=== PATIENT | female | born 1940 | race Caucasian/White ===

== ENCOUNTER 2018-03-19 01:41 | Inpatient (IN) | payer MEDICARE, BC ==
[2018-03-19] VITALS (28 sets, daily range): BP systolic 95–150; BP diastolic 47–110; PULSE 82–100; RESP 13–18; Ht 160 cm; Wt 90.1 kg
[~2018-03-19] VITALS: Ht 160 cm; Wt 90.1 kg
[~2018-03-19 01:41] MED LIST: ACET1TAB40 PO; ALLO100T PO; BENA20TA4 PO; BUPR75TA9 PO; ESOM40CA PO; ESTR1TAB23 PO; LEVO88TA42 PO; PARO30TA48 PO; TRAZ-111 PO
--- NOTE | 2018-03-19 01:56 | OPR ---
Date/Time of Note Date/Time of Note DATE: 03/19/18 TIME: 01:52 Operative Report Free Text/Dictation DATE OF OPERATION: 03/19/2018 PREOPERATIVE DIAGNOSES: 1. L4-5 unstable isthmic spondylolisthesis s/p ALIF w/ PSIF on 03/11/2018 w/ graft subsidence and recurrent right L4 stenosis w/ radiculopathy POSTOPERATIVE DIAGNOSES: 1. L4-5 unstable isthmic spondylolisthesis s/p ALIF w/ PSIF on 03/11/2018 w/ graft subsidence and recurrent right L4 stenosis w/ radiculopathy 2. Right sided L4-5 hardware failure OPERATION PERFORMED: 1. Revision right sided L4-5 partial laminectomy, medial facetectomy, and foraminotomy 2. Revision L4-5 posterior spinal instrumented fusion SURGEON: Zeeshan Velazquez MD HEALTH EQUIPMENT SERVICER: Bhupinder Chacon MD ANESTHESIA: General endotracheal ESTIMATED BLOOD LOSS: Minimal SURGICAL INDICATION: The patient is a 77 year-old female who has a past medical history of L4-5 wide decompression many years ago that was compliacted with an L4-5 unstable isthmic grade 2 spondylolosthesis. She uderwent an ALIF w/ PSIF on 03/11/2018 that was compliacted with graft subsidence and hardwrae failure resulting in recurrent right sided foraminal stenosis. She developed recurrent severe right sided leg pain and was unable to ambulate. The patient had failed conservative treatment. Risks, benefits, and alternatives to a revision decompressive procedure and fusion including but not exclusive of risks of bleeding, hardware failure, infection, nerve injury, cauda equina syndrome, iatrogenic instability, dural tear, myocardial infarction, stroke, pulmonary embolism were explained to the patient, and he wished to proceed. DESCRIPTION OF TECHNIQUE: The patient was identified in the preoperative area a nd taken to the operating room. Rapid induction of general endotracheal anesthesia was performed. Patient was given 2 g of cefazolin for prophylaxis. The patient was then placed in the prone position on the axis table with all bony prominences well padded. The back was prepped and draped in usual sterile manner. Using a spinal needle and intraoperative fluoroscopy, the L4-5 level was clearly identified. The skin was injected using 0.25% Marcaine with epinephrine. Longitudinal midline incision was then created using a 10 blade. Further dissection through soft tissue was performed using electrocautery down over the right L4-5 facet joint. . Dissection was taken down over the facet joint capsule. A self-retaining retractor was applied. Again, intraoperative f luoroscopy confirmed the level. The microscope was brought into use for microdissection. The decompressive procedure took an addition 1.5 hours due to the abudunt scar tisssue that was adherent to the dura from the prior decompression. Meticulous dissection was performed using a series of curettes and kerrison rongeurs to disect out the facet. The pars defect was also identified and the right L4-5 facet was resected and the L4 nerve root was follwed from the L3 pedicle laterally and noted to be decompressed. The Alcides was removed at L4-5 on the Right. The Right L4 pedicle screw was noted to be loose. The Right L5 screw and Left sided L4 and L5 screws were also checked and noted to be in good position without loosening. The Right L3 screw was removed and replaced with a larger diameter and longer 7.5 x 45 mm screw. A new alcides was then placed and set screws were placed. Meticulous attention was paid toward hemostasis using bipolar cautery, FloSeal, Gelfoam and thrombin. Care was taken to remove all FloSeal and Gelfoam and thrombin prior to wound closure. The fascia was then closed using 1 Vicryl in interrupted fashion. Subcutaneous tissue was closed using 2-0 Vicryl in interrupted fashion. Skin was closed using a running 4-0 Monocryl stitch. The wound was dressed using Dermabond, sterile 4x4 gauze and Tegaderm. The patient was returned to the supine position. They were extubated immediately postoperatively and taken to the recovery room in stable condition. COMPLICATIONS: None. Procedure Date: Mar 19, 2018 Preoperative Diagnosis 1. L4-5 unstable isthmic spondylolisthesis s/p ALIF w/ PSIF on 03/11/2018 w/ graft subsidence and recurrent right L4 stenosis w/ radiculopathy Postoperative Diagnosis 1. L4-5 unstable isthmic spondylolisthesis s/p ALIF w/ PSIF on 03/11/2018 w/ graft subsidence and recurrent right L4 stenosis w/ radiculopathy 2. Right sided L4-5 hardware failure Operation/Procedure Performed 1. Revision right sided L4-5 partial laminectomy, medial facetectomy, and foraminotomy 2. Revision L4-5 posterior spinal instrumented fusion Surgeon see signature line Feather Cutting Machine Feeder Bhupinder Chacon MD Anesthesia Type: general Estimated Blood Loss: 10 - 50 ml's Transfusion none Specimen None Grafts/Implants NuVasive 7.5 x 45 mm pedicle screw Complications none Pt Condition Post Procedure: stable Disposition: PACU Procedure Description DESCRIPTION OF TECHNIQUE: The patient was identified in the preoperative area and taken to the operating room. Rapid induction of general endotracheal anesthesia was performed. Patient was given 2 g of cefazolin for prophylaxis. The patient was then placed in the prone position on the axis table with all bony prominences well padded. The back was prepped and draped in usual sterile manner. Using a spinal needle and intraoperative fluoroscopy, the L4-5 level was clearly identified. The skin was injected using 0.25% Marcaine with epinephrine. Longitudinal midline incision was then created using a 10 blade. Further dissection through soft tissue was performed using electrocautery down over the right L4-5 facet joint. . Dissection was taken down over the facet joint capsule. A self-retaining retractor was applied. Again, intraoperative fluoroscopy confirmed the level. The microscope was brought into use for microdissection. The decompressive procedure took an addition 1.5 hours due to the abudunt scar tisssue that was adherent to the dura from the prior decompression. Meticulous dissection was performed using a series of curettes and kerrison rongeurs to disect out the facet. The pars defect was also identified and the right L4-5 facet was resected and the L4 nerve root was follwed from the L3 pedicle laterally and noted to be decompressed. The Alcides was removed at L4-5 on the Right. The Right L4 pedicle screw was noted to be loose. The Right L5 screw and Left sided L4 and L5 screws were also checked and noted to be in good position without loosening. The Right L3 screw was removed and replaced with a larger diameter and longer 7.5 x 45 mm screw. A new alcides was then placed and set screws were placed. Meticulous attention was paid toward hemostasis using bipolar cautery, FloSeal, Gelfoam and thrombin. Care was taken to remove all FloSeal and Gelfoam and thrombin prior to wound closure. The fascia was then closed using 1 Vicryl in interrupted fashion. Subcutaneous tissue was closed using 2-0 Vicryl in interrupted fashion. Skin was closed using a running 4-0 Monocryl stitch. The wound was dressed using Dermabond, sterile 4x4 gauze and Tegaderm. The patient was returned to the supine position. They were extubated immediately postoperatively and taken to the recovery room in stable condition. ZEESHAN VELAZQUEZ MD Mar 19, 2018 01:56
[2018-03-19] MEDS ORDERED: PROCHLORPERAZINE 10 MG TAB PO PRN (02:00)
[2018-03-19] MEDS ORDERED: NACL 0.9% 3 ML SYG IV SCH (02:00)
[2018-03-19] MEDS ORDERED: HYDROmorphONE 1 MG/5 ML IV SYRINGE IV PRN ×3 (02:00)
[2018-03-19] MEDS ORDERED: ONDANSETRON 4 MG INJ IV PRN ×2 (02:00)
[2018-03-19] MEDS ORDERED: ACETAMINOPHEN 325 MG TAB PO PRN (02:00)
[2018-03-19] MEDS ORDERED: MEPERIDINE 25 MG INJ IV PRN (02:00)
[2018-03-19] MEDS ORDERED: NALOXONE (0.4 MG/ML) INJ IV PRN (02:00)
[2018-03-19] MEDS ORDERED: DIPHENHYDRAMINE 50 MG INJ IV PRN (02:00)
[2018-03-19] MEDS ORDERED: HYDROmorphONE 0.2 MG/ML PCA IV SCH (02:00)
--- NOTE | 2018-03-19 03:31 | NUR ---
pt came out of surgery with old personal lines agent from Rehab (turned off); Harjinder VillaltaAutomatic Spinning Lathe Operator came and picked up that personal lines agent and medication along with it to return to Rehab (per Pharmacy); New E TAILER started vss gauze dressing with tegaderm on back; c/d/i pain 06/09 called for family; no one in waiting area gave report to NAI Morris
[2018-03-19] MEDS: CEFAZOLIN 1 GM/50 ML (PMX) 50 ML IVPB SCH ×3 (05:38→17:38)
[2018-03-19] MEDS ORDERED: CEFAZOLIN 1 GM/50 ML (PMX) 50 ML IVPB SCH (06:00)
--- NOTE | 2018-03-19 06:53 | NUR ---
EOSS: PT IN BED ASLEEP. EASILY AWAKENS. NO DISTRESS. NO ACUTE CHANGES. PATIENT FROM PACU S/P REVISION OF L4-5 PARTIAL LAMINECTOMY,MEDIAL FACETECTOMY AND FORAMINOTOMY, REVISION OF POSTERIOR SPINAL INSTRUMENTED FUSION. DRESSING TO LOWER BACK WITH GAUZE AND TEGADERM C/D/I. ABDOMINAL INCISION FROM PRIOR SX COVERED W/ TEGADERM W/ CENTRAL PAD C/D/I. F/C INTACT AND DRAINING. IV ATB ADMINISTERED ORDERED TOLERATED WELL. PAIN MANAGED WITH VB NET DEVELOPER DILAUDID. TOLERATED WELL. ALL NEEDS MET AND ANTICIPATED. WILL CONTINUE TO MONITOR. CALL LIGHT AT REACH.
--- NOTE | 2018-03-19 07:19 | PAC ---
Date/Time of Note Date/Time of Note DATE: 03/19/18 TIME: 07:18 Post-Anesthesia Notes Post-Anesthesia Note Last documented vital signs Vital Signs Date Temp Pulse Resp B/P (MAP) Pulse Ox O2 O2 Flow FiO2 Time Delivery Rate 03/19/18 17 05:51 03/19/18 84 127/60 96 Nasal 2.0 04:55 (82) Cannula 03/19/18 98.9 03:35 Activity: WNL Respiratory function: WNL Cardiovascular function: WNL Mental status: Baseline Pain reasonably controlled: Yes Hydration appropriate: Yes Nausea/Vomiting absent: No HERNÁN CHAPMAN MD Mar 19, 2018 07:19
--- NOTE | 2018-03-19 08:31 | CONS ---
Date/Time of Note Date/Time of Note DATE: 03/19/18 TIME: 08:29 Assessment/Plan Assessment/Plan Additional Assessment/Plan 1- Post op lumbar back surgery now without right leg radic pain. 2- IV fluids started and labs ordered 3- HBP, controlled 4- Gout, quiescent 5- Mood disorder, stable 6- Will follow Consultation Date/Type/Reason Admit Date/Time Mar 19, 2018 at 03:25 Initial Consult Date Detailed Summary Respiratory: No cough, No shortness of breath Cardiovascular: No chest pain Gastrointestinal: no complaints Genitourinary: other (chan in place) Musculoskeletal: back pain (mild-mod and now she does not have right leg pain) Exam/Review of Systems Vital Signs Vitals Vital Signs Date Temp Pulse Resp B/P (MAP) Pulse Ox O2 O2 Flow FiO2 Time Delivery Rate 03/19/18 98.2 82 18 121/58 98 07:35 (79) 03/19/18 Nasal 2.0 04:55 Cannula Intake and Output 03/18/18 03/18/18 03/19/18 1515:00 23:00 07:00 IntakeIntake Total 50 ml OutputOutput Total 250 ml BalanceBalance -200 ml Exam Neck: No jvd Cardiovascular: regular rate and rhythm Gastrointestinal: soft Extremities: No edema, No tenderness Medications Medications Current Medications Acetaminophen/ Hydrocodone Bitart ([place] (5/325)) 1 tab Q4H PRN PO PAIN LEVEL 1-5; Start 03/19/18 at 02:00 Acetaminophen/ Hydrocodone Bitart ([place] (5/325)) 2 tab Q4H PRN PO PAIN LEVEL 6-10; Start 03/19/18 at 02:00 Prochlorperazine (Compazine) 10 mg Q4H PRN PO NAUSEA AND/OR VOMITING; Start 03/19/18 at 02:00 Ondansetron HCl (Zofran Inj) 4 mg Q6H PRN IV NAUSEA AND/OR VOMITING; Start 03/19/18 at 02:00 Acetaminophen (Tylenol Tab) 650 mg Q4H PRN PO fever; Start 03/19/18 at 02:00 Hydromorphone HCl (Dilaudid CONVEYOR LOADER) Q4PCA IV Last administered on 03/19/18at 03:01; Admin Dose 6 MG; Start 03/19/18 at 02:00 Naloxone HCl (Narcan) 0.2 mg Q2M PRN IV overdose; Start 03/19/18 at 02:00 Cefazolin Sodium 50 ml @ 100 mls/hr Q6 IVPB Last administered on 03/19/18at 05:38; Admin Dose 100 MLS/HR; Start 03/19/18 at 06:00; Stop 03/20/18 at 00:29 BETO DOYLE MD Mar 19, 2018 08:31
[2018-03-19] MEDS: PAROXETINE 10 MG TAB PO SCH (09:00)
[2018-03-19] MEDS: BENAZEPRIL 20 MG TAB PO SCH (09:00)
[2018-03-19] MEDS: SOD CHLORIDE 0.9% 1,000 ML IV SCH ×2 (09:30→15:22)
[2018-03-19] MEDS: BUPROPION 75 MG TAB PO SCH (11:10)
[2018-03-19] MEDS: ALLOPURINOL 100 MG TAB PO SCH (11:10)
[2018-03-19] MEDS: ESTRADIOL 1 MG TAB PO SCH (11:10)
--- NOTE | 2018-03-19 12:33 | CONS ---
Date/Time of Note Date/Time of Note DATE: 03/19/18 TIME: 12:31 Consultation Date/Type/Reason Admit Date/Time Mar 19, 2018 at 03:25 Initial Consult Date 24 HR Interval Summary Free Text/Dictation S: 77 yo F POD#1 s/p revision L4-5 fusion and decompression. Pain controlled w/ dilaudid MEDIA CONSULTANT. Reports improvement of right sided leg pain. No acute events overnight. O: Vital Signs Date Temp Pulse Resp B/P (MAP) Pulse Ox O2 O2 Flow FiO2 Time Delivery Rate 03/19/18 17 09:33 03/19/18 Nasal 2.0 08:00 Cannula 03/19/18 98.2 82 121/58 98 07:35 (79) Gen: AAOx3, NAD Spine: NVI A/P:77 yo F POD#1 s/p revision L4-5 fusion and decompression 1. appreciate med recs 2. Bed rest 3. pain management w/ PCS 4. LSO brace Exam/Review of Systems Vital Signs Vitals Vital Signs Date Temp Pulse Resp B/P (MAP) Pulse Ox O2 O2 Flow FiO2 Time Delivery Rate 03/19/18 17 09:33 03/19/18 Nasal 2.0 08:00 Cannula 03/19/18 98.2 82 121/58 98 07:35 (79) Intake and Output 03/18/18 03/18/18 03/19/18 1515:00 23:00 07:00 IntakeIntake Total 50 ml OutputOutput Total 250 ml BalanceBalance -200 ml Medications Medications Current Medications Acetaminophen/ Hydrocodone Bitart ([place] (5/325)) 1 tab Q4H PRN PO PAIN LEVEL 1-5; Start 03/19/18 at 02:00 Acetaminophen/ Hydrocodone Bitart ([place] (5/325)) 2 tab Q4H PRN PO PAIN LEVEL 6-10; Start 03/19/18 at 02:00 Prochlorperazine (Compazine) 10 mg Q4H PRN PO NAUSEA AND/OR VOMITING; Start 03/19/18 at 02:00 Ondansetron HCl (Zofran Inj) 4 mg Q6H PRN IV NAUSEA AND/OR VOMITING; Start 03/19/18 at 02:00 Acetaminophen (Tylenol Tab) 650 mg Q4H PRN PO fever; Start 03/19/18 at 02:00 Hydromorphone HCl (Dilaudid MEDIA CONSULTANT) Q4PCA IV Last administered on 03/19/18at 03:01; Admin Dose 6 MG; Start 03/19/18 at 02:00 Naloxone HCl (Narcan) 0.2 mg Q2M PRN IV overdose; Start 03/19/18 at 02:00 Cefazolin Sodium 50 ml @ 100 mls/hr Q6 IVPB Last administered on 03/19/18at 11:16; Admin Dose 100 MLS/HR; Start 03/19/18 at 06:00; Stop 03/20/18 at 00:29 Allopurinol (Zyloprim) 200 mg DAILY PO Last administered on 03/19/18at 11:10; Admin Dose 200 MG; Start 03/19/18 at 09:00 Benazepril HCl (Lotensin) 20 mg DAILY PO ; Start 03/19/18 at 09:00 Bupropion HCl (Wellbutrin) 75 mg BID PO Last administered on 03/19/18at 11:10; Admin Dose 75 MG; Start 03/19/18 at 09:00 Estradiol (Estrace) 0.5 mg DAILY PO Last administered on 03/19/18at 11:10; Admin Dose 0.5 MG; Start 03/19/18 at 09:00 Levothyroxine Sodium (Synthroid) 88 mcg BEFORE BREAKFAST PO ; Start 03/20/18 at 07:00 Paroxetine HCl (Paxil) 30 mg DAILY PO Last administered on 03/19/18at 09:00; Admin Dose 30 MG; Start 03/19/18 at 09:00 Trazodone HCl (Desyrel) 50 mg QHS PO ; Start 03/19/18 at 21:00 Sodium Chloride 1,000 ml @ 100 mls/hr Q10H IV Last administered on 03/19/18at 09:30; Admin Dose 100 MLS/HR; Start 03/19/18 at 08:30 Results Result Diagram: 03/19/18 0841 03/19/18 0841 Results 24 hrs Laboratory Tests Test 03/19/18 08:41 White Blood Count 11.8 #H Red Blood Count 3.23 L Hemoglobin 9.9 L Hematocrit 31.2 L Mean Corpuscular Volume 96.6 Mean Corpuscular Hemoglobin 30.7 Mean Corpuscular Hemoglobin Concent 31.7 L Red Cell Distribution Width 13.9 Platelet Count 312 Mean Platelet Volume 9.8 Immature Granulocytes % 2.400 H Neutrophils % 68.6 Lymphocytes % 17.0 Monocytes % 8.8 Eosinophils % 2.9 Basophils % 0.3 Nucleated Red Blood Cells % 0.0 Immature Granulocytes # 0.280 H Neutrophils # 8.1 H Lymphocytes # 2.0 Monocytes # 1.0 H Eosinophils # 0.3 Basophils # 0.0 Nucleated Red Blood Cells # 0.0 Sodium Level 135 Potassium Level 4.2 Chloride Level 103 Carbon Dioxide Level 25 Anion Gap 7 Blood Urea Nitrogen 27 H Creatinine 1.12 H Est Glomerular Filtrat Rate mL/min Glucose Level 101 Calcium Level 7.8 L Phosphorus Level 5.4 H Magnesium Level 1.6 L ZEESHAN VELAZQUEZ MD Mar 19, 2018 12:33
[2018-03-19] MEDS ORDERED: HYDROmorphONE 0.5 MG/0.5 ML SYG IV PRN (13:00)
[2018-03-19] MEDS: HYDROCODONE/APAP (5/325) TAB PO PRN ×2 (13:06→17:38)
--- NOTE | 2018-03-19 15:16 | NUR ---
CM NOTES: MET WITH THE PT AT THE BEDSIDE. PT IS A 77 YRS OLD FEMALE WITH ADMITTING DX OF SPONDYLOLITHESIS WITH SEVERE FORAMINAL STENOSIS. PT IS AXOX4. PRIOR TO THE ADMISSION, PT WAS AT [facility]. IT IS PT'S WISH TO GO BACK TO INPT REHAB UNIT WHEN SHE IS MEDICALLY CLEARED. PER THE PT, SHE WAS IN [facility] UN[facility] FOR 5 DAYS. CURRENTLY AWAITING FOR MD TO CLEAR THE PT FOR PHYSICAL THERAPY EVALUATION AND TXT. THIS CM WILL REMAIN AVAILABLE. DAV CUNNINGHAM CM [id number] Addendum: 03/19/18 at 1518 by DAV TUCKER CM Amended: Links added.
--- NOTE | 2018-03-19 19:40 | NUR ---
END OF SHIFT NOTE Pain managed with 2 tab endocet. Tomlinson catheter in place and draining to gravity. Tolerated regular diet well. Dressing to back changed to clean gauze and tegaderm. Abdomen dressing dry and intact. Pt passing gas. Has brace with her. Pt resting in bed with call light within reach and bed in lowest position.
[2018-03-20] MEDS: BUPROPION 75 MG TAB PO SCH ×3 (00:29→22:16)
[2018-03-20] MEDS: traZODone 50 MG TAB PO SCH ×2 (00:29→21:04)
[2018-03-20] MEDS: CEFAZOLIN 1 GM/50 ML (PMX) 50 ML IVPB SCH (00:29)
[2018-03-20] MEDS: HYDROCODONE/APAP (5/325) TAB PO PRN ×5 (00:29→18:59)
[2018-03-20 01:24] VITALS: BP 122/60; PULSE 85; RESP 16
[2018-03-20] MEDS: SOD CHLORIDE 0.9% 1,000 ML IV SCH ×2 (04:46→18:32)
[2018-03-20] MEDS: LEVOTHYROXINE 88 MCG TAB PO SCH (07:15)
[2018-03-20 07:27] VITALS: BP 154/70; PULSE 75; RESP 18
--- NOTE | 2018-03-20 07:55 | CONS ---
Date/Time of Note Date/Time of Note DATE: 03/20/18 TIME: 07:53 Assessment/Plan Assessment/Plan Additional Assessment/Plan 1. Post op lumbar back surg with ? residual right leg radic sxs, await ortho follow up. 2. Hopeful mobilization today. 3. DC chan soon, u/a and cult sent 4. Hypomag noted yesterday, will replete today 5. Mood disorder, is stable Consultation Date/Type/Reason Admit Date/Time Mar 19, 2018 at 03:25 Initial Consult Date Detailed Summary Respiratory: No cough, No shortness of breath Cardiovascular: No chest pain Gastrointestinal: No no complaints Genitourinary: other (chan in place) Musculoskeletal: back pain (moderate and c/o right knee pain, ? right thigh pain) Exam/Review of Systems Vital Signs Vitals Vital Signs Date Temp Pulse Resp B/P (MAP) Pulse Ox O2 O2 Flow FiO2 Time Delivery Rate 03/20/18 98.3 75 18 154/70 94 Room Air 07:27 (98) 03/19/18 2.0 08:00 Intake and Output 03/19/18 03/19/18 03/20/18 1515:00 23:00 07:00 IntakeIntake Total 430 ml 2070 ml 1150 ml OutputOutput Total 100 ml 1200 ml 1000 ml BalanceBalance 330 ml 870 ml 150 ml Exam Neck: No jvd Respiratory: clear to auscultation Cardiovascular: regular rate and rhythm Gastrointestinal: soft Extremities: other (no tend right knee or right thigh); No edema, No tenderness BETO DOYLE MD Mar 20, 2018 07:55
[2018-03-20] MEDS ORDERED: MAGNESIUM SULFATE 3 GM in DEXTROSE 5% 100 ML IVPB ONE (08:00)
[2018-03-20] MEDS ORDERED: NA PHOSPHATE/BIPHOS 133 ML ENEMA PR PRN (08:00)
[2018-03-20] MEDS: DOCUSATE SODIUM 100 MG CAP PO SCH ×2 (08:50→21:04)
[2018-03-20] MEDS: MAGNESIUM HYDROXIDE 30ML CUP PO PRN ×2 (08:50→21:07)
[2018-03-20] MEDS: BENAZEPRIL 20 MG TAB PO SCH (08:51)
[2018-03-20] MEDS: ESTRADIOL 1 MG TAB PO SCH (08:51)
[2018-03-20] MEDS: ALLOPURINOL 100 MG TAB PO SCH (08:51)
[2018-03-20] MEDS: PAROXETINE 10 MG TAB PO SCH (08:57)
--- NOTE | 2018-03-20 10:01 | NUR ---
PT EVALUATION , Therapy day number 1 Evaluation Start Time 09:00 Evaluation End Time 10:00 Evaluation Total Time 60 min Subjective Current complaint of pain Pain Scale NUMERIC Pain Intensity 5 (0-10) Patient Stated Goal for Pain Relief 0 (0-10) Pain Level Comment RLE . Pre Treatment Vital Signs Stable Yes - BP:2144/70 HR:75 Exercise Assessment Label Bilat Lower Extremity Exercise Type Active ROM Additional Exercise Comments AP, KNEE FLEX, EXT, LOG ROLL TR . Supine to Sit Maximum Assist Transfer Sit to Stand Ability Maximum Assist Bed Mobility Sit to Supine Maximum Assist Sitting Tolerance 15 min Patient uses wheelchair Not Applicable Gait Assist Levels Maximum Assist Assistive Devices Front Wheel Walker Additional Gait Comments 5 STEPS X3 INCLUFING 5 SIDE STEPS . Weight Bearing Assessment Label Bilat Lower Extremity Weight Bearing Status Full Weight Bearing Additional Stairs Assist Comments TBA WHEN ABLE . Static Sitting Balance Good Dynamic Sitting Balance Fair plus Standing Static Balance Poor plus Dynamic Standing Balance Poor plus Additional Balance Assessments Comments OOB WITH LSO BRACE Safety Judgement Fair Activity Tolerance Poor Equipment Present A pump Tomlinson Catheter IV pump Additional Equipment Present LSO BRACE . Post Treatment Pain Intensity 5 0-10 Quality Indicators Dizziness Variance Documentation P/S SEE PT NOTE . Additional Post Treatment Comment VERY NERVOUS AND ANXIOUS . PT Technical Record Comment PT EVALUATION , S: RN CLEARED , PATIENT AGREEABLE PATIENT VERY FEARFUL, ANXIOUS AND NERVOUS . A: PATIENT IS A 77 Y/O FEMALE WITH PMH: HTN , LBP, SPONDYLOLISTHESIS , SEVERE FORAMINAL STENOSIS , S/P RT TSA , CKD , H,OF GOUT S/P ANTERIOR , POSTERIOR LUMBAR INTERBODY FUSION L4-L4 ON 03/12/18 , PATIENT DISCHARGED TO ARU BUT DUE TO CONSTANT RLE PAIN ON 03/19/18 UNDERWENT REVISION L4-L5 FUSION AND DECOMPRESSION .INSTRUCTED THE PATIENT IN SAFETY FALL PRECAUTION , LOG ROLL TR , BODY MECHANICS , POSTURE TRAINING AND SPINE PRECAUTION , P/S SEE PT TECHNICAL RECORD FOR PATIENT'S FUNCTIONAL STATUS , GAIT TR W/FWW PERFORMED 5 STEPS X3 WITH MAX A AND VC'S FOR SEQUENCING , AND UPRIGHT POSTURE , NOTED PATIENT HAS DIFFICULTY ADVANCING RRE , DECREASE STEP LENGTH , AND GAIT W/FWW UNSTEADY , AND UNSTABLE AT THIS TIME ( NO BUCKLING OR RT KNEE NOTED , AND NO ANTALGIC GAIT), PATIENT RETURNED BACK TO BED WITH MAX A , NSG STAFF PRESENT ASSISTED TO RE=POSITION HER IN COMFORTABLE POSITION , VS STABLE , TOLERATED TREATMENT FAIRLY, RN NOTIFIED PATIENT'S FUNCTIONAL STATUS IN PT SESSION . A: PATIENT LIVES IN A HOUSE WITH 2 STAIRS TO ENTER , HAS BEEN FUNCTIONAL AND AMBULATORY WITHOUT AD , DC PLANING PER MD RECOMMENDATION , PATIENT WOULD LIKE TO RETURN TO ARU TO COMPLETED HER REHABILITATION PROGRAM . A: PT BID X6 DAILY X1 ( BED MOBILITY TR , LOG ROLL TR, ROM EXE;S BLE'S ( NO SLR), TRANSFER TR, PRE-GAIT TR /GAIT R W/FWW TO ELIZABETH , PATIENT EDUCATION TRAINING ), OOB WITH LSO BRACE .
--- NOTE | 2018-03-20 13:23 | NUR ---
PT NOTE , ATTEMPTED TO SEE THE PATIENT FOR PT TREATMENT , PER RN REQUEST WILL HOLD PT AT THIS TIME , DUE TO PATIENT SCHEDULED FOR MRI OF RT HIP / AND LUMBAR SPINE , PLAN TO RETURN LATER TODAY , RN AWARE .
[2018-03-20 14:08] VITALS: BP 140/60; PULSE 86; RESP 18
--- NOTE | 2018-03-20 14:30 | NUR ---
PT NOTE , RN NOTIFIED PT PER DR VELAZQUEZ , WILL HOLD PT IN PM AND REQUESTED TO KEEP PATIENT IN FLAT POSITION , PLAN TO FOLLOW UP TOMORROW ONCE CLEARED BY
--- NOTE | 2018-03-20 19:23 | NUR ---
END OF SHIFT NOTE: Pain managed with PO [place]. PT worked with pt in the morning. Due to R sided pain, pt went down for STAT CT of lumbar spine and R leg. PT held for afternoon per Dr. Anguiano. Dr to the bedside, dressing changed. VSS, call burns within reach, hourly rounding maintained.
[2018-03-20] MEDS ORDERED: DEXAMETHASONE 10 MG/ML 1 ML INJ IV ONE (19:30)
[2018-03-20 19:35] VITALS: BP 163/73; PULSE 64; RESP 16
[2018-03-20] MEDS: GABAPENTIN 300 MG CAP PO SCH (21:05)
[2018-03-20 22:15] VITALS: BP 145/65; PULSE 78
[2018-03-21 01:17] VITALS: BP 174/94; PULSE 90; RESP 18
[2018-03-21 01:22] VITALS: BP 135/70
[2018-03-21] MEDS: HYDROCODONE/APAP (5/325) TAB PO PRN ×5 (02:27→21:33)
[2018-03-21] MEDS: SOD CHLORIDE 0.9% 1,000 ML IV SCH ×2 (04:26→17:42)
[2018-03-21] MEDS: LEVOTHYROXINE 88 MCG TAB PO SCH (07:01)
[2018-03-21 07:25] VITALS: BP 147/77; PULSE 78; RESP 20
--- NOTE | 2018-03-21 07:48 | CONS ---
Date/Time of Note Date/Time of Note DATE: 03/21/18 TIME: 07:46 Assessment/Plan Assessment/Plan Additional Assessment/Plan 1- Stable post op lumbar back surg 2- HBP, controlled 3- Hypomag resolved 4- Chan needs to be remove soon 5- Hypothyroidism on replacement rx Consultation Date/Type/Reason Admit Date/Time Mar 19, 2018 at 03:25 Initial Consult Date Detailed Summary Respiratory: No shortness of breath Cardiovascular: No chest pain Gastrointestinal: no complaints Genitourinary: other (chan is in place) Musculoskeletal: back pain (mild and today she has less right thight and groin pain) Exam/Review of Systems Vital Signs Vitals Vital Signs Date Temp Pulse Resp B/P (MAP) Pulse Ox O2 O2 Flow FiO2 Time Delivery Rate 03/21/18 97.8 78 20 147/77 92 Room Air 07:25 (100) 03/19/18 2.0 08:00 Intake and Output 03/20/18 03/20/18 03/21/18 1515:00 23:00 07:00 IntakeIntake Total 156 ml 800 ml 1050 ml OutputOutput Total 950 ml 550 ml 2800 ml BalanceBalance -794 ml 250 ml -1750 ml Exam Neck: No jvd Respiratory: clear to auscultation Cardiovascular: regular rate and rhythm Gastrointestinal: soft Extremities: No edema (and no calf tend) BETO DOYLE MD Mar 21, 2018 07:48
--- NOTE | 2018-03-21 07:57 | NUR ---
End of shift Note: Given pain medication [place] PRN with good pain control. Pt BP was high last night 168/74, call MD Smith to notified to get a order for Benazepril 20 mg daily, pt stated that she did not take her BP medication since admission. MD order to give her Benazepril daily dose. Nurse check E-mar and pt had Benazepril yesterday morning. Recheck BP again and BP 145/65 and Pt BP was WNL by 2 am. Pt is on bedrest. Safety precautions taken, call light in reach and plan of care endorse to morning nurse.
[2018-03-21] MEDS: BUPROPION 75 MG TAB PO SCH ×2 (08:58→21:31)
[2018-03-21] MEDS: DOCUSATE SODIUM 100 MG CAP PO SCH ×2 (08:58→21:32)
[2018-03-21] MEDS: ALLOPURINOL 100 MG TAB PO SCH (08:58)
[2018-03-21] MEDS: GABAPENTIN 300 MG CAP PO SCH ×3 (08:58→21:32)
[2018-03-21] MEDS: PAROXETINE 10 MG TAB PO SCH (08:58)
[2018-03-21] MEDS: BENAZEPRIL 20 MG TAB PO SCH (08:59)
[2018-03-21] MEDS ORDERED: BENAZEPRIL 20 MG TAB PO SCH (09:00)
--- NOTE | 2018-03-21 09:46 | NUR ---
PT NOTE, ay number 2 Subjective Current complaint of pain Pain Scale NUMERIC Pain Intensity 3 (0-10) Patient Stated Goal for Pain Relief 0 (0-10) Pain Level Comment back and rt hip pain . Pre Treatment Vital Signs Stable Yes - bp:147/77 hr:78 Exercise Assessment Label Bilat Lower Extremity Exercise Type Active ROM Additional Exercise Comments AP, KNEE FLEX, EXT, LOG ROLL TR . Exercise Start Time 09:00 Exercise End Time 09:28 Total Exercise Time 28 min (8-127) Supine to Sit Moderate Assist Transfer Sit to Stand Ability Moderate Assist Bed Mobility Sit to Supine Moderate Assist Sitting Tolerance 15 min Patient uses wheelchair Not Applicable Gait Training Start Time 09:28 Gait Assist Levels Minimum Assist Assistive Devices Front Wheel Walker Ambulation Distance 30 feet Additional Gait Comments SLOW ANDRES , Gait Training End Time 09:40 Total Gait Training Treatment Time 12 min (8-127) Weight Bearing Assessment Label Bilat Lower Extremity Weight Bearing Status Full Weight Bearing Static Sitting Balance Good Dynamic Sitting Balance Good Standing Static Balance Good Dynamic Standing Balance Fair plus Additional Balance Assessments Comments W/FWW Safety Judgement Fair Activity Tolerance Fair Equipment Present A pump Tomlinson Catheter IV pump Additional Equipment Present LSO BRACE Post Treatment Pain Intensity 3 0-10 Variance Documentation P/S SEE PT NOTE . Additional Post Treatment Comment LESS ANXIOUS . Total Treatment Time 40 min (8-127) Total Minutes 40 Total Units 3 PT Technical Record Comment PT NOTE , DR VELAZQUEZ AND RN CLEARED , PATIENT AGREEABLE, PATIENT COOPERATIVE , MOTIVATED LESS ANXIOUS TODAY NO C/O PAIN WHILE IN SUPINE POSITION . RE-INSTRUCTED THE PATIENT IN SPINE PRECAUTION , P/S SEE PT TECHNICAL RECORD FOR PATIENT'S FUNCTIONAL STATUS , DON /DOFF LSO BRACE AT EOB WITH MOD A , GAIT TR W/FWW PERFORMED 30' WITH MIN A AND CONSTANT VC'S FOR SEQUENCING , PATIENT HAS SLOW ANDRES , GAIT W/FWW STABLE , GAIT W/FWW LIMITED DUE TO GENERALIZED WEAKNESS , RETURNED BACK TO BED WIH MOD, VS STABLE TOLERATED TREATMENT WELL . PATIENT'S FUNCTIONAL STATUS SIGNIFICANTLY IMPROVED . P: DC PLAN ING PER MD RECOMMENDATION , PATIENT WOULD LIKE TO RETURN TO ARU TO COMPLETE REHABILITATION PROGRAM . P: CONTINUE WITH POC AND PROGRESS TO [facility] .
--- NOTE | 2018-03-21 12:08 | CONS ---
Date/Time of Note Date/Time of Note DATE: 03/21/18 TIME: 12:06 Consultation Date/Type/Reason Admit Date/Time Mar 19, 2018 at 03:25 Initial Consult Date 24 HR Interval Summary Free Text/Dictation S: 77 yo F POD#3 s/p revision L4-5 fusion and decompression. Pain controlled w/ PO [place]. Reports good improvement in right sided leg pain.. No acute events overnight. walked 30 feet w/ PT today. O: Vital Signs Date Temp Pulse Resp B/P (MAP) Pulse Ox O2 O2 Flow FiO2 Time Delivery Rate 03/21/18 97.8 78 20 147/77 92 Room Air 07:25 (100) 03/19/18 2.0 08:00 Gen: AAOx3, NAD Spine: Neurostable CT hip: No fx, mild to mod OA CT Lspine: stable, mild L4-5 gradt subsidence w/ stable spondylolisthesis. A/P:77 yo F POD#2 s/p revision L4-5 fusion and decompression 1. appreciate med recs 2.OOB w/ PT w/ brace 3. LSO brace 4. D/C chan tomorrow once PT oks Exam/Review of Systems Vital Signs Vitals Vital Signs Date Temp Pulse Resp B/P (MAP) Pulse Ox O2 O2 Flow FiO2 Time Delivery Rate 03/21/18 97.8 78 20 147/77 92 Room Air 07:25 (100) 03/19/18 2.0 08:00 Intake and Output 03/20/18 03/20/18 03/21/18 1515:00 23:00 07:00 IntakeIntake Total 156 ml 800 ml 1050 ml OutputOutput Total 950 ml 550 ml 2800 ml BalanceBalance -794 ml 250 ml -1750 ml ZEESHAN VELAZQUEZ MD Mar 21, 2018 12:07
[2018-03-21 13:37] VITALS: BP 128/60; PULSE 82; RESP 20
--- NOTE | 2018-03-21 13:59 | NUR ---
PT NOTE ,, Therapy day number 2 Subjective Current complaint of pain Pain Scale NUMERIC Pain Intensity 2 (0-10) Patient Stated Goal for Pain Relief 0 (0-10) Pain Level Comment back and rle pain . Supine to Sit Minimum Assist Transfer Sit to Stand Ability Moderate Assist Bed Mobility Sit to Supine Moderate Assist Sitting Tolerance 15 min Patient uses wheelchair Not Applicable Gait Training Start Time 13:10 Gait Assist Levels Minimum Assist Assistive Devices Front Wheel Walker Ambulation Distance 90 feet Additional Gait Comments SLOW ANDRES Gait Training End Time 13:50 Total Gait Training Treatment Time 40 min (8-127) Weight Bearing Assessment Label Bilat Lower Extremity Weight Bearing Status Full Weight Bearing Additional Stairs Assist Comments TBA WHEN ABLE . Static Sitting Balance Good Dynamic Sitting Balance Good Standing Static Balance Good Dynamic Standing Balance Fair plus Additional Balance Assessments Comments W/FWW Safety Judgement Fair Activity Tolerance Fair Equipment Present A pump Tomlinson Catheter IV pump Additional Equipment Present LSO BRACE . Post Treatment Pain Intensity 3 0-10 Variance Documentation P/S SEE PT NOTE . Additional Post Treatment Comment LESS ANXIOUS . Total Treatment Time 40 min (8-127) Total Minutes 40 Total Units 3 PT Technical Record Comment PT NOTE , S: RN CLEARED , PATIENT AGREEABLE , FEELING BETTER AND STRONGER THIS PM . O: RE-INSTRUCTED THE PATIENT IN SPINE PRECAUTION AND LOG ROLL TR , GAIT TR WFWW PERFORMED 90' WITH MIN A AND CONSTANT VC'S FOR SAFETY, AND SEQUENCING , PATIENT FATIGUES EASILY AND REQUIRES FREQUENT STANDING RESTING PERIODS, ( WHEN FATIGUES GAIT BECOMES UNSTEADY, AND UNSTABLE W/FWW ), PATIENT RETURNED BACK TO BED WITH MOD A VIA LOG ROLL VS STABLE TOLERATED TREATMENT WE;; ( DON / DOFF LSO BRACE AT EOB WITH MOD A ). A: PER MD RECOMMENDATION PATIENT WILL BE DC HOME WITH PT FOLLOW UP. P: CONTINUE WITH POC AND PROGRESS TO [facility] .
--- NOTE | 2018-03-21 18:55 | NUR ---
end of shift; Pt had BM after fleet enema(no BM since 03/16). Ambulated with PT twce. Pain has been controlled by [place]
[2018-03-21 19:25] VITALS: BP 116/61; PULSE 86; RESP 20
[2018-03-21] MEDS: traZODone 50 MG TAB PO SCH (21:32)
[2018-03-21] MEDS: GUAIFENESIN 20 MG/ML 5ML CUP PO PRN (23:17)
[2018-03-22 02:24] VITALS: BP 111/58; PULSE 78; RESP 20
[2018-03-22] MEDS: SOD CHLORIDE 0.9% 1,000 ML IV SCH ×2 (04:57→10:00)
--- NOTE | 2018-03-22 05:52 | NUR ---
END OF SHIFT SUMMARY: AOX4. VVS. Given [place] for pain with good relief. Tomlinson in place draining to gravity. Regular diet. Abdomen and back dressing C/D/I. Pt had a BM yesterday morning. Safety precautions taken,call burns in reach, low bed position.
[2018-03-22] MEDS: LEVOTHYROXINE 88 MCG TAB PO SCH (06:19)
[2018-03-22] MEDS: GUAIFENESIN 20 MG/ML 5ML CUP PO PRN (06:47)
[2018-03-22] MEDS: HYDROCODONE/APAP (5/325) TAB PO PRN ×4 (06:47→18:55)
--- NOTE | 2018-03-22 06:54 | NUR ---
Pt sometimes cough and causes to have back pain given Robitussin prn with good relief.
[2018-03-22 07:42] VITALS: BP 145/70; PULSE 77; RESP 18
--- NOTE | 2018-03-22 07:51 | CONS ---
Date/Time of Note Date/Time of Note DATE: 03/22/18 TIME: 07:49 Consultation Date/Type/Reason Admit Date/Time Mar 19, 2018 at 03:25 Initial Consult Date 24 HR Interval Summary Free Text/Dictation S: 77 yo F POD#4 s/p revision L4-5 fusion and decompression. Pain controlled w/ PO [place]. Reports good improvement in right sided leg pain.. No acute events overnight. walked 90 feet w/ PT yesterday. Had BM x 1 yesterday. O: Vital Signs Vital Signs Date Temp Pulse Resp B/P (MAP) Pulse Ox O2 O2 Flow FiO2 Time Delivery Rate 03/22/18 97.7 77 18 145/70 95 07:42 (95) 03/22/18 Room Air 02:24 03/19/18 2.0 08:00 Gen: AAOx3, NAD Spine: Neurostable CT hip: No fx, mild to mod OA CT Lspine: stable, mild L4-5 gradt subsidence w/ stable spondylolisthesis. A/P:77 yo F POD#3 s/p revision L4-5 fusion and decompression 1. appreciate med recs 2.OOB w/ PT w/ brace 3. LSO brace 4. D/C chan today once ok w/ PT for transfer Exam/Review of Systems Vital Signs Vitals Vital Signs Date Temp Pulse Resp B/P (MAP) Pulse Ox O2 O2 Flow FiO2 Time Delivery Rate 03/22/18 97.7 77 18 145/70 95 07:42 (95) 03/22/18 Room Air 02:24 03/19/18 2.0 08:00 Intake and Output 03/21/18 03/21/18 03/22/18 1414:59 22:59 06:59 IntakeIntake Total 960 ml 1100 ml OutputOutput Total 900 ml 450 ml 1400 ml BalanceBalance -900 ml 510 ml -300 ml ZEESHAN VELAZQUEZ MD Mar 22, 2018 07:51
--- NOTE | 2018-03-22 08:01 | CONS ---
Date/Time of Note Date/Time of Note DATE: 03/22/18 TIME: 07:59 Assessment/Plan Assessment/Plan Additional Assessment/Plan 1. Post op lumbar spine surgery with much improved right leg radic pain. 2. Cough with nl pul exam, cxr ordered and mucolytic, will ask RT to intervene helping with IS 3. BP well controlled 4. Chan to be removed today. 5. Rev with ortho Consultation Date/Type/Reason Admit Date/Time Mar 19, 2018 at 03:25 Initial Consult Date Detailed Summary Respiratory: cough (that is not productive); No pleuritic pain Cardiovascular: no complaints Gastrointestinal: no complaints Genitourinary: other (chan is in place) Musculoskeletal: back pain (mild and c/o oright buttock pain and minimal right thigh pain) Exam/Review of Systems Vital Signs Vitals Vital Signs Date Temp Pulse Resp B/P (MAP) Pulse Ox O2 O2 Flow FiO2 Time Delivery Rate 03/22/18 97.7 77 18 145/70 95 07:42 (95) 03/22/18 Room Air 02:24 03/19/18 2.0 08:00 Intake and Output 03/21/18 03/21/18 03/22/18 1515:00 23:00 07:00 IntakeIntake Total 960 ml 1100 ml OutputOutput Total 900 ml 450 ml 1400 ml BalanceBalance -900 ml 510 ml -300 ml Exam Neck: No jvd Respiratory: clear to auscultation Cardiovascular: regular rate and rhythm Gastrointestinal: soft Extremities: No edema, No tenderness BETO DOYLE MD Mar 22, 2018 08:01
[2018-03-22] MEDS: DOCUSATE SODIUM 100 MG CAP PO SCH ×2 (08:21→20:17)
[2018-03-22] MEDS: GABAPENTIN 300 MG CAP PO SCH ×3 (08:22→20:18)
[2018-03-22] MEDS: BENAZEPRIL 20 MG TAB PO SCH (08:22)
[2018-03-22] MEDS: ALLOPURINOL 100 MG TAB PO SCH (08:22)
[2018-03-22] MEDS: PAROXETINE 10 MG TAB PO SCH (08:23)
[2018-03-22] MEDS: BUPROPION 75 MG TAB PO SCH ×2 (08:23→20:17)
[2018-03-22] MEDS: GUAIFENESIN/DM 5ML CUP PO SCH ×4 (09:44→20:18)
--- NOTE | 2018-03-22 09:53 | NUR ---
PT NOTE , Therapy day number 3 Subjective Current complaint of pain Pain Scale NUMERIC Pain Intensity 3 (0-10) Patient Stated Goal for Pain Relief 0 (0-10) Pain Level Comment rt buttocks , radiating to rt thigh Exercise Assessment Label Bilat Lower Extremity Exercise Type Active ROM Additional Exercise Comments AP, KNEE FLEX, EXT , LOG ROLL TR Exercise Start Time 08:50 Exercise End Time 09:02 Total Exercise Time 12 min (8-127) Supine to Sit Contact Guard Assist Transfer Sit to Stand Ability Minimum Assist Bed Mobility Sit to Supine Moderate Assist Sitting Tolerance 15 min Patient uses wheelchair Not Applicable Gait Training Start Time 09:02 Gait Assist Levels Minimum Assist Assistive Devices Front Wheel Walker Ambulation Distance 100 feet Additional Gait Comments SLOW ANDRES .OCC,UNSTEAD WITH LOB WHEN FATIGUE Gait Training End Time 09:30 Total Gait Training Treatment Time 28 min (8-127) Weight Bearing Assessment Label Bilat Lower Extremity Weight Bearing Status Full Weight Bearing Static Sitting Balance Good Dynamic Sitting Balance Good Standing Static Balance Good Dynamic Standing Balance Fair plus Additional Balance Assessments Comments W/FWW Safety Judgement Fair Activity Tolerance Fair Equipment Present A pump Tomlinson Catheter Additional Equipment Present LSO BRACE Post Treatment Pain Intensity 3 0-10 Variance Documentation P/S SEE PT NOTE Additional Post Treatment Comment REQUIRES VC'S FOR REINFORCE SAFETY. Total Treament Time 40 min (8-127) Total Minutes 40 Total Units 3 PT Technical Record Comment PT NOTE , S: RN CLEARED , PATIENT AGREEABLE , PATIENT WAS PRE-MEDICATED FOR PAIN MANAGEMENT . O: P/S SEE PT TECHNICAL RECORD FOR PATIENT'S FUNCTIONAL STATUS . GAIT TR W/FWW PERFORMED 100' WITH MIN A AND CONSTANT VC'S FOR SAFETY , SEQUENCING , PATIENT REQUIRES CONSTANT VC'S / REINFORCEMENT FOR SAFETY, PATIENT'S GAIT W/FWW SLOW ANDRES PATTERN , OCC,UNSTEADY UNSTABLE , LOB X2 WITH FAIR RECOVERY ,ALSO FATIGUES EASILY, RETURNED BACK TO BED WITH MOD A VIA LOG ROLL, VS STABLE TOLERATED TREATMENT WELL , RN NOTIFIED PATIENT'S ANTICIPATION IN PT SESSION . A: PATIENT IS CLEARED TO GET OOB TO BED SIDE COMMODE WITH NSG STAFF. P: CONTINUE WITH POC .
--- NOTE | 2018-03-22 11:56 | NUR ---
OT EVALUATION , PATIENT IS A 77 Y/O FEMALE WITH PMH: HTN , LBP, SPONDYLOLISTHESIS , SEVERE FORAMINAL STENOSIS , S/P RT TSA , CKD , H,OF GOUT S/P ANTERIOR , POSTERIOR LUMBAR INTERBODY FUSION L4-L4 ON 03/12/18 , PATIENT DISCHARGED TO ARU BUT DUE TO CONSTANT RLE PAIN ON 03/19/18 UNDERWENT REVISION L4-L5 FUSION AND DECOMPRESSION PLOF: PATIENT LIVES IN A HOUSE WITH 2 STAIRS TO ENTER , HAS BEEN INDEPENDENT AND AMBULATORY WITHOUT AE. CLOF: PT CLEARED BY NAI MCGHEE FOR TX. PT RECEIVED SUPINE IN BED AND AGREEABLE TO TX STATING 6/10 PAIN IN RIGHT HIP AND FOOT. OTR EDUCATED PT ON SPINAL PRECAUTIONS (NO BENDING, LIFTING AND TWISTING). PT PERFORMED SUPINE-> SIT FOLLOWING LOG ROLL TECHNIQUE WITH CGA. SEATED AT EOB PT DONNED TLSO BRACE INDEPENDENTLY. OTR EDUCATED PT ON AE TO ERIC LB DRESSING. PT THEN DONNED SOCKS USING AE ( SOCK AID) WITH SBA. PT PERFORMED STS WITH CGA REQUIRING VC FOR PROPER HAND/FOOT PLACEMENT. PT THEN PERFORMED FUNCTIONAL MOB AND 3/ COMMODE TRANSFER WITH CGA FOLLOWING SPINAL PRECAUTIONS. PT STOOD AT BATHROOM SINK WITH CGA WHILE OTR DEMONSTRATED HOW TO PERFORM H/G FOLLOWING SPINAL PRECAUTIONS. PT RETURNED TO BED FOLLOWING LOG ROLL TECHNIQUE WITH CGA. RN NOTIFIED. RECOMMENDATIONS: PT WILL BENEFIT FROM OT TX 1X DAILY FOR 3-5 DAYS FOR THER ACT, SAFETY AWARENESS, BALANCE AND INDEPENDENCE WITH SELF CARE. DC PLANING PER MD RECOMMENDATION , PATIENT WOULD LIKE TO RETURN TO ARU TO COMPLETED HER REHABILITATION PROGRAM . Addendum: 03/22/18 at 1207 by EMMA CALVIN OT DME RECOMMENDED: FWW AND 05/31 COMMODE UPON DISCHARGE
--- NOTE | 2018-03-22 14:00 | NUR ---
RN NOTES: Patient seen by with order to give cepacol and d/c chan catheter
--- NOTE | 2018-03-22 14:47 | NUR ---
PT NOTE , Therapy day number 3 Subjective Current complaint of pain Pain Scale NUMERIC Pain Intensity 3 (0-10) Patient Stated Goal for Pain Relief 3 (0-10) Pain Level Comment RT BUTTOCK, RSDIATING TO RLE . Supine to Sit Contact Guard Assist Transfer Sit to Stand Ability Minimum Assist Bed Mobility Sit to Supine Minimum Assist Sitting Tolerance 10 min Additional Mobility Comments VIA LOG ROLL, AND HOLDING ON SIDE RAIL. Patient uses wheelchair Not Applicable Gait Training Start Time 14:00 Gait Assist Levels Dependent Assistive Devices Front Wheel Walker Ambulation Distance 150 feet Additional Gait Comments SLOW [place] , OCC.UNSTEADY LOB X2 WITH GOOD RECOVERY Gait Training End Time 14:40 Total Gait Training Treatment Time 40 min (8-127) Weight Bearing Assessment Label Bilat Lower Extremity Weight Bearing Status Full Weight Bearing Static Sitting Balance Good Dynamic Sitting Balance Good Standing Static Balance Good Dynamic Standing Balance Fair plus Additional Balance Assessments Comments W/FWW Safety Judgement Fair Activity Tolerance Fair Additional Equipment Present LSO BRACE Post Treatment Pain Intensity 3 0-10 Variance Documentation P/S SEE PT NOTE . Total Treament Time 40 min (8-127) Total Minutes 40 Total Units 3 PT Technical Record Comment PT NOTE , S: RN CLEARED , PATIENT AGREEABLE , FEELING MUCH BETTER THIS PM . S: RE-INSTRUCTED THE PATIENT AGAIN IN LOG ROLL, AND SPINE PRECAUTION , DON/DOFF LSO AT EOB WITH MIN A , GAIT TR W/FWW PERFORMED 150' WITH MIN A / CGA AND CONSTANT VC'S FOR SEQUENCING , PATIENT'S GAIT W/FWW OCC.UNSTEADY , LOB X2 WITH GOOD RECOVERY , PATIENT RETURNED BACK TO BED WITH MIN A , VS STABLE , TOLERATED TREATMENT WELL , PATIENT IS CLEARED TO GET OOB TO BED SIDE COMMODE WITH NSG STAFF , RN NOTIFIED . Rigo RAZA PLANNING PER MD RECOMMENDATION , WILL NEED FWW . P: CONTINUE WITH POC AND PROGRESS TO [facility] .
[2018-03-22 15:03] VITALS: BP 134/63; PULSE 75; RESP 16
[2018-03-22] MEDS: CEPASTAT LOZENGE MT PRN (15:05)
--- NOTE | 2018-03-22 18:02 | NUR ---
RN NOTES: Patient in bed, awake and verbally responsive. No distress noted at this time. All needs attended. Safety measures provided.
[2018-03-22 19:55] VITALS: BP 152/70; PULSE 78; RESP 18
[2018-03-22] MEDS: traZODone 50 MG TAB PO SCH (20:18)
[2018-03-23] MEDS: HYDROCODONE/APAP (5/325) TAB PO PRN ×5 (01:04→19:32)
[2018-03-23 01:06] VITALS: BP 152/74; PULSE 74; RESP 18
[2018-03-23] MEDS: LEVOTHYROXINE 88 MCG TAB PO SCH (05:15)
[2018-03-23] MEDS: GUAIFENESIN/DM 5ML CUP PO SCH ×4 (05:15→20:25)
--- NOTE | 2018-03-23 06:16 | NUR ---
Patient alert, oriented x4, in pain, every four hours were given pain medication and every six hours anti coughing medications; because of pain and coughing SBP was slightly elevated up to 153 mm Hg.
[2018-03-23 07:59] VITALS: BP 152/72; PULSE 70; RESP 16
[2018-03-23] MEDS: DOCUSATE SODIUM 100 MG CAP PO SCH ×2 (09:15→20:23)
[2018-03-23] MEDS: GABAPENTIN 300 MG CAP PO SCH ×3 (09:16→20:22)
[2018-03-23] MEDS: BENAZEPRIL 20 MG TAB PO SCH (09:16)
[2018-03-23] MEDS: PAROXETINE 10 MG TAB PO SCH (09:17)
[2018-03-23] MEDS: BUPROPION 75 MG TAB PO SCH ×2 (09:18→20:22)
[2018-03-23] MEDS: ALLOPURINOL 100 MG TAB PO SCH (09:18)
--- NOTE | 2018-03-23 09:56 | CONS ---
Date/Time of Note Date/Time of Note DATE: 03/23/18 TIME: 09:52 Consultation Date/Type/Reason Admit Date/Time Mar 19, 2018 at 03:25 Initial Consult Date 24 HR Interval Summary Free Text/Dictation S: 77 yo F POD#5 s/p revision L4-5 fusion and decompression. Pain controlled w/ PO [place]. Reports good improvement in right sided leg pain.. No acute events overnight. Walked 150 feet w/ PT yesterday. No acute events over night. O: Vital Signs Date Temp Pulse Resp B/P (MAP) Pulse Ox O2 O2 Flow FiO2 Time Delivery Rate 03/23/18 97.8 70 16 152/72 92 07:59 (98) Gen: AAOx3, NAD Spine: Neurostable CT hip: No fx, mild to mod OA CT Lspine: stable, mild L4-5 graft subsidence w/ stable spondylolisthesis. A/P:77 yo F POD#3 s/p revision L4-5 fusion and decompression 1. appreciate med recs 2.OOB w/ PT w/ brace 3. LSO brace 4. D/C once cleared by PT Exam/Review of Systems Vital Signs Vitals Vital Signs Date Temp Pulse Resp B/P (MAP) Pulse Ox O2 O2 Flow FiO2 Time Delivery Rate 03/23/18 97.8 70 16 152/72 92 07:59 (98) 03/23/18 Room Air 01:06 03/19/18 2.0 08:00 Intake and Output 03/22/18 03/22/18 03/23/18 1515:00 23:00 07:00 IntakeIntake Total 1390 ml 350 ml OutputOutput Total 1100 ml 250 ml BalanceBalance 290 ml 100 ml ZEESHAN VELAZQUEZ MD Mar 23, 2018 09:56
--- NOTE | 2018-03-23 10:13 | NUR ---
PT NOTE [facility] Patient: Fauzia Bacon : 1940 Age/Sex: 77/F Unit#: [id number] Room/Bed: 430/A User: Madie Lou PTA Date: 03/23/18 10:13 Type: PT Technical Record Therapy day number 4 Subjective Current complaint of pain Pain Scale NUMERIC Pain Intensity 6 (0-10) Patient Stated Goal for Pain Relief 0 (0-10) Pain Level Comment R thigh Supine to Sit Stand by Assist Transfer Sit to Stand Ability Contact Guard Assist Bed Mobility Sit to Supine Stand by Assist Additional Mobility Comments log roll Patient uses wheelchair Not Applicable Gait Training Start Time 09:45 Gait Assist Levels Contact Guard Assist Assistive Devices Front Wheel Walker Ambulation Distance 80 feet Additional Gait Comments slow derick, dec step length/stride, multiple rest breaks d/t pain Gait Training End Time 10:13 Total Gait Training Treatment Time 28 min (8-127) Weight Bearing Assessment Label Bilat Lower Extremity Weight Bearing Status Full Weight Bearing Static Sitting Balance Good Dynamic Sitting Balance Fair plus Standing Static Balance Fair plus Dynamic Standing Balance Fair plus Additional Balance Assessments Comments FWW Safety Judgement Fair Activity Tolerance Fair Additional Equipment Present LSO brace Post Treatment Pain Intensity 6 0-10 Variance Documentation See PT note Total Treament Time 28 min (8-127) Total Minutes 28 Total Units 2 PT Technical Record Comment PT NOTE S: NAI Hooker cleared pt for PT. Pt c/o 610 R thigh pain and was premedicated. Agreeable to tx O: Received pt in semifowler. SBA/CGA mobility via log rolling, transfers, and gait training w/ FWW. Thomas to don/doff LSO brace while seated EOB. Gait training x 80' and presented with slow derick, decreased step length/stride, and multiple rest breaks due to pain. No LOB/buckling. Returned pt back to room/bed. Positioned pt to comfort in semifowler. Call light/phone within reach. Bed alarm on. Needs met. A: Fair tolerance to tx. Limited due to pain. Thomas to CGA during ambulation P: Continue w/ POC and progress as tolerated. Increase gait distance when able
--- NOTE | 2018-03-23 11:55 | CONS ---
Date/Time of Note Date/Time of Note DATE: 03/23/18 TIME: 11:54 Assessment/Plan Assessment/Plan Additional Assessment/Plan 1. Improving post op lumbar back surg 2. Anemia, stable, will recheck iron studies 3. BP controlled Consultation Date/Type/Reason Admit Date/Time Mar 19, 2018 at 03:25 Initial Consult Date Detailed Summary Respiratory: cough (is less); No shortness of breath Gastrointestinal: no complaints Genitourinary: no complaints Musculoskeletal: other (right thigh discomfort is less as is back pain) Exam/Review of Systems Vital Signs Vitals Vital Signs Date Temp Pulse Resp B/P (MAP) Pulse Ox O2 O2 Flow FiO2 Time Delivery Rate 03/23/18 97.8 70 16 152/72 92 07:59 (98) 03/23/18 Room Air 01:06 03/19/18 2.0 08:00 Intake and Output 03/22/18 03/22/18 03/23/18 1515:00 23:00 07:00 IntakeIntake Total 1390 ml 350 ml OutputOutput Total 1100 ml 250 ml BalanceBalance 290 ml 100 ml Exam Neck: No jvd Respiratory: clear to auscultation Cardiovascular: regular rate and rhythm Gastrointestinal: soft Extremities: No edema, No tenderness BETO DOYLE MD Mar 23, 2018 11:55
--- NOTE | 2018-03-23 12:28 | NUR ---
PT NOTE [facility] Patient: Fauzia Bacon : 1940 Age/Sex: 77/F Unit#: [id number] Room/Bed: 430/A User: Madie Lou PTA Date: 03/23/18 12:28 Type: PT Technical Record Therapy day number 4 Subjective Current complaint of pain Pain Scale NUMERIC Pain Intensity 4 (0-10) Patient Stated Goal for Pain Relief 0 (0-10) Pain Level Comment R thigh Supine to Sit Stand by Assist Transfer Sit to Stand Ability Contact Guard Assist Bed Mobility Sit to Supine Stand by Assist Additional Mobility Comments log roll Patient uses wheelchair Not Applicable Gait Training Start Time 12:04 Gait Assist Levels Contact Guard Assist Assistive Devices Front Wheel Walker Ambulation Distance 100 feet Additional Gait Comments improved derick, reciprocal pattern. 1 standing rest period d/t pain Gait Training End Time 12:28 Total Gait Training Treatment Time 24 min (8-127) Weight Bearing Assessment Label Bilat Lower Extremity Weight Bearing Status Full Weight Bearing Static Sitting Balance Good Dynamic Sitting Balance Good Standing Static Balance Good Dynamic Standing Balance Fair plus Additional Balance Assessments Comments FWW Safety Judgement Fair Activity Tolerance Fair Additional Equipment Present LSO brace Post Treatment Pain Intensity 4 0-10 Variance Documentation See PT note Total Treament Time 24 min (8-127) Total Minutes 24 Total Units 2 PT Technical Record Comment PT NOTE S: NAI Hooker cleared pt for PT. Pt c/o 4/10 R thigh pain and was premedicated. Agreeable to tx O: Received pt in semifowler w/ family present in room. See above for assist levels. Gait trainig x 100' and presented with improved derick, decreased step length/stride. Required 1 standing rest break d/t pain. Returned pt back to room/bed. Positioned pt to comfort in supine. Call light/phone within reach. Bed alarm on. Needs met. Left pt w/ family present in room A: Fair tolerance to tx. Don/doff LSO brace w/ VC. Good understanding of spinal precautions P: Continue w/ POC and progress as tolerated. Stair training when appropriate
[2018-03-23 15:23] VITALS: BP 130/59; PULSE 80; RESP 16
[2018-03-23 20:06] VITALS: BP 146/67; PULSE 84; RESP 18
--- NOTE | 2018-03-23 20:21 | NUR ---
END OF SHIFT NOTE: Patient reports severe pain radiating from lower back to right leg. Patient reports adequate relief with norco 5/325 two tabs every four hours. Jalen changed Neurontin from 300mg to 600mg BID; patient tolerated new medication and reported some sleepiness. Jalen called and telephone order placed for case management to arrange SNF placement versus ARU. Patient was instructed on IS use and able to go up to 2000ml. Patient has cough and given scheduled cough medicine. Patient had no other events noted. Dressings remain intact with no drainage on either back or abdomen.
[2018-03-23] MEDS: traZODone 50 MG TAB PO SCH (20:22)
[2018-03-24] MEDS: HYDROCODONE/APAP (5/325) TAB PO PRN ×6 (01:37→22:00)
[2018-03-24 02:27] VITALS: BP 120/60; PULSE 92; RESP 18
[2018-03-24 02:29] VITALS: BP 150/73; PULSE 82; RESP 18
[2018-03-24] MEDS: SOD CHLORIDE 0.9% 1,000 ML IV SCH (04:57)
--- NOTE | 2018-03-24 06:39 | NUR ---
Shift Summary Pt in no acute distress. Pt treated for pain during shift with [place]. Pt's IVs became infiltrated during shift and were removed. All due medications given. Will endorse care to next shift.
[2018-03-24 07:20] VITALS: BP 156/70; PULSE 75; RESP 18
[2018-03-24] MEDS: LEVOTHYROXINE 88 MCG TAB PO SCH (07:36)
--- NOTE | 2018-03-24 08:00 | NUR ---
PT RECEIVED IN BED. A,A,OX4. NOT IN ANY ACUTE DISTRESS. THE PLAN OF CARE DISCUSSED W/ THE PT, VERBALIZED UNDERSTANDING. CALL LIGHT IN REACH. PT ENCOURAGED TO CALL FOR ASSISTANCE. WILL CONT. MONITORING. WILL CONT. W/ THE PLAN OF CARE.
[2018-03-24] MEDS: DOCUSATE SODIUM 100 MG CAP PO SCH ×2 (08:16→22:19)
[2018-03-24] MEDS: CEPASTAT LOZENGE MT PRN (08:16)
[2018-03-24] MEDS: PAROXETINE 10 MG TAB PO SCH (08:17)
[2018-03-24] MEDS: BUPROPION 75 MG TAB PO SCH ×2 (08:17→22:19)
[2018-03-24] MEDS: GABAPENTIN 300 MG CAP PO SCH ×3 (08:17→22:19)
[2018-03-24] MEDS: BENAZEPRIL 20 MG TAB PO SCH (08:18)
[2018-03-24] MEDS: ALLOPURINOL 100 MG TAB PO SCH (08:18)
[2018-03-24] MEDS: GUAIFENESIN/DM 5ML CUP PO SCH ×4 (08:20→22:19)
--- NOTE | 2018-03-24 10:08 | NUR ---
PT NOTE Therapy day number 5 Subjective Current complaint of pain Pain Scale NUMERIC Pain Intensity 0 (0-10) Patient Stated Goal for Pain Relief 0 (0-10) Pain Level Comment denies pain Transfer Training Start Time 10:08 Supine to Sit Stand by Assist Transfer Sit to Stand Ability Contact Guard Assist Bed Mobility Sit to Supine Stand by Assist Sitting Tolerance 5 min Additional Mobility Comments log rolling Transfer Training End Time 10:17 Total Transfer Training Time 9 min (8-127) Patient uses wheelchair Not Applicable Gait Training Start Time 10:17 Gait Assist Levels Contact Guard Assist Assistive Devices Front Wheel Walker Ambulation Distance 50 feet Additional Gait Comments frequent standing rest breaks due to increased R posterior leg pain, antalg Gait Training End Time 10:35 Total Gait Training Treatment Time 18 min (8-127) Weight Bearing Assessment Label Bilat Lower Extremity Weight Bearing Status Full Weight Bearing Additional Stairs Assist Comments TBA Static Sitting Balance Good Dynamic Sitting Balance Good Standing Static Balance Good Dynamic Standing Balance Fair plus Additional Balance Assessments Comments FWW Safety Judgement Fair Activity Tolerance Fair Additional Equipment Present LSO Brace Post Treatment Pain Intensity 8 0-10 Variance Documentation SEE PT NOTE Total Treament Time 27 min (8-127) Total Minutes 27 Total Units 2 PT Technical Record Comment PT NOTE S: Pt denied pain, premedicated O: NAI Somers cleared pt for PT session. Pt received in bed, agreeable to PT. Pt donned LSO brace with Robert for all OOB activities. Pt participated in interventions as described above. Gait training 50' x 4 requiring frequent standing rest breaks and one sitting rest break after 2nd 50' bout, noted step-to gait, antalgic gait, forward flexed. Pt returned to bed, alarm activated, RN notified of pt's status. A: Pt continues to be limited in activity tolerance due to R LE pain, ambulating 50' x 4 with frequent standing rest breaks due to pain. P: Continue c PT POC
--- NOTE | 2018-03-24 13:14 | CONS ---
Date/Time of Note Date/Time of Note DATE: 03/24/18 TIME: 13:12 Assessment/Plan Assessment/Plan Additional Assessment/Plan 1. Stable post op L spine surg with residual right groin and thight pain. 2. BP sl inc, will add amlodipine 3. Hct is stable Consultation Date/Type/Reason Admit Date/Time Mar 19, 2018 at 03:25 Initial Consult Date Detailed Summary Respiratory: No cough, No shortness of breath Cardiovascular: No chest pain Gastrointestinal: no complaints Genitourinary: no complaints Musculoskeletal: back pain (is mod and right thigh/inguinal pain prevents her from sitting, supine is ok and walking mild discomfort) Exam/Review of Systems Vital Signs Vitals Vital Signs Date Temp Pulse Resp B/P (MAP) Pulse Ox O2 O2 Flow FiO2 Time Delivery Rate 03/24/18 98.7 75 18 156/70 96 Room Air 07:20 (98) Intake and Output 03/23/18 03/23/18 03/24/18 1515:00 23:00 07:00 IntakeIntake Total 1100 ml OutputOutput Total 1000 ml BalanceBalance 1100 ml -1000 ml Exam Neck: No jvd Respiratory: clear to auscultation Cardiovascular: regular rate and rhythm Gastrointestinal: soft Extremities: No edema, No tenderness BETO DOYLE MD Mar 24, 2018 13:14
[2018-03-24] MEDS: AMLODIPINE 2.5 MG TAB PO SCH ×2 (13:55→22:20)
[2018-03-24] MEDS: FERROUS FUMARATE (SR) TAB PO SCH ×2 (13:55→22:19)
[2018-03-24 14:46] VITALS: BP 126/61; PULSE 84; RESP 18
[2018-03-24] MEDS ORDERED: SOD FERRIC GLUC COMPLX 125 MG in SOD CHLORIDE 0.9% 100 ML IVPB ONE (15:00)
[2018-03-24] MEDS: HYDROmorphONE 2 MG TAB PO PRN (15:08)
--- NOTE | 2018-03-24 16:11 | NUR ---
Discharge planning; Contacted Family-son Festus about rehab. placement inquiry. Confirmed that they would like to send inquiry to [facility] , faxed to . Will endorse to CM Team to follow up tomorrow with their Admission department.
--- NOTE | 2018-03-24 17:10 | NUR ---
EOSS: PT'S HEMODYNAMICS AND RESPIR. STATUS ARE STABLE. NO COMPLICATIONS. NO CHANGES IN CONDITION. PAIN MGMT IS EFFECTIVE. WILL CONT. MONITORING. WILL CONT. W/ THE PLAN OF CARE.
[2018-03-24 19:58] VITALS: BP 144/65; PULSE 91; RESP 18
[2018-03-24] MEDS: traZODone 50 MG TAB PO SCH (22:20)
[2018-03-25] MEDS: HYDROCODONE/APAP (5/325) TAB PO PRN ×5 (01:53→23:14)
[2018-03-25 02:06] VITALS: BP 142/72; PULSE 84; RESP 18
[2018-03-25] MEDS: LEVOTHYROXINE 88 MCG TAB PO SCH (06:11)
--- NOTE | 2018-03-25 06:17 | NUR ---
NRSG NOTE: PT IN BED, ASLEEP, EASILY AROUSED. AOX4. NO ACUTE DISTRESS NOTED. NO SOB. VSS. PAIN MGMT EFFECTIVE VIA NORCO PO. NO IV ACCESS AT THIS TIME. PT RESTING COMFORTABLY. CONTINUE DISCHARGE PLANNING TODAY TO [facility]
[2018-03-25 07:15] VITALS: BP 137/67; PULSE 80; RESP 18
[2018-03-25] MEDS: GUAIFENESIN/DM 5ML CUP PO SCH ×4 (08:08→20:33)
[2018-03-25] MEDS: HYDROmorphONE 2 MG TAB PO PRN (08:18)
[2018-03-25] MEDS: GABAPENTIN 300 MG CAP PO SCH ×3 (08:19→20:34)
[2018-03-25] MEDS: PAROXETINE 10 MG TAB PO SCH (08:19)
[2018-03-25] MEDS: FERROUS FUMARATE (SR) TAB PO SCH ×2 (08:19→20:33)
[2018-03-25] MEDS: ALLOPURINOL 100 MG TAB PO SCH (08:19)
[2018-03-25] MEDS: BUPROPION 75 MG TAB PO SCH ×2 (08:19→20:34)
[2018-03-25] MEDS: DOCUSATE SODIUM 100 MG CAP PO SCH ×2 (08:19→20:34)
[2018-03-25] MEDS: AMLODIPINE 2.5 MG TAB PO SCH ×2 (08:20→20:34)
[2018-03-25] MEDS: BENAZEPRIL 40 MG TAB PO SCH (08:20)
--- NOTE | 2018-03-25 09:25 | NUR ---
PT NOTE , day number 6 Subjective Current complaint of pain Pain Scale NUMERIC Pain Intensity 3 (0-10) Patient Stated Goal for Pain Relief 0 (0-10) Pain Level Comment BACK RAIDATING TO RT HIP, POSTERIOR ASPECT AND RLE . Supine to Sit Contact Guard Assist Transfer Sit to Stand Ability Contact Guard Assist Bed Mobility Sit to Supine Minimum Assist Sitting Tolerance 5 min Additional Mobility Comments LOG ROLLING . Patient uses wheelchair Not Applicable Gait Training Start Time 08:45 Gait Assist Levels Contact Guard Assist Assistive Devices Front Wheel Walker Ambulation Distance 50 feet Additional Gait Comments 50' C2 , SLOW ANDRES , OCC.UNSTEADY, DUE TO SUDDEN LBP WITH RADIATING TO R Gait Training End Time 09:15 Total Gait Training Treatment Time 30 min (8-127) Weight Bearing Assessment Label Bilat Lower Extremity Weight Bearing Status Full Weight Bearing Static Sitting Balance Good Dynamic Sitting Balance Good Standing Static Balance Good Dynamic Standing Balance Fair plus Additional Balance Assessments Comments W/FWW Safety Judgement Fair Activity Tolerance Fair Additional Equipment Present LSO BRACE Post Treatment Pain Intensity 3 0-10 Variance Documentation P/S SEE PT NOTE . Total Treatment Time 30 min (8-127) Total Minutes 30 Total Units 2 PT Technical Record Comment PT NOTE , S: RN CLEARED , PATIENT AGREEABLE , PATIENT WAS PRE-MEDIATED FOR PAIN , NO C/O BACK PAIN WHEN IN SUPINE POSITION , ONLY C/O 3/10 LOCALIZED BACK PAIN RADIATING TO RT HIP AND RLE . WHEN PATIEN IS IN UPRIGHT POSTURE , EXPERIENCING LESS PAIN . O: GAIT TR WITH FWW PERFORMED 50' X2 WITH CG A . IMPROVED GAIT [PATTERN , STILL OCC,GAIT WITH FWW UNSTEADY ONCE C/O LBP. A:DC PLANNING PER MD RECOMMENDATION . P: CONT.WITH POC .
[2018-03-25] MEDS ORDERED: DEXAMETHASONE 10 MG/ML 1 ML INJ IM ONE (12:00)
--- NOTE | 2018-03-25 12:13 | CONS ---
Date/Time of Note Date/Time of Note DATE: 03/25/18 TIME: 12:11 Assessment/Plan Assessment/Plan Additional Assessment/Plan 1. Post op lumbar back surg with continued right leg radic sxs 2. BP well controlled 3. Cough has improved Consultation Date/Type/Reason Admit Date/Time Mar 19, 2018 at 03:25 Initial Consult Date Detailed Summary Respiratory: No cough, No shortness of breath Cardiovascular: No chest pain Gastrointestinal: no complaints Genitourinary: no complaints Musculoskeletal: back pain (mod but inc right thigh pain with much difficulty trying to sit) Exam/Review of Systems Vital Signs Vitals Vital Signs Date Temp Pulse Resp B/P (MAP) Pulse Ox O2 O2 Flow FiO2 Time Delivery Rate 03/25/18 98.3 80 18 137/67 96 Room Air 07:15 (90) Intake and Output 03/24/18 03/24/18 03/25/18 1515:00 23:00 07:00 OutputOutput Total 300 ml BalanceBalance -300 ml Exam Neck: No jvd Respiratory: clear to auscultation, other (cough has improved) Cardiovascular: regular rate and rhythm Gastrointestinal: soft Extremities: No edema, No tenderness Medications Medications Current Medications Acetaminophen/ Hydrocodone Bitart ([place] (5/325)) 1 tab Q4H PRN PO PAIN LEVEL 1-5 Last administered on 03/21/18at 17:43; Admin Dose 1 TAB; Start 03/19/18 at 02:00 Acetaminophen/ Hydrocodone Bitart ([place] (5/325)) 2 tab Q4H PRN PO PAIN LEVEL 6-10 Last administered on 03/25/18at 10:58; Admin Dose 2 TAB; Start 03/19/18 at 02:00 Prochlorperazine (Compazine) 10 mg Q4H PRN PO NAUSEA AND/OR VOMITING; Start 03/19/18 at 02:00 Ondansetron HCl (Zofran Inj) 4 mg Q6H PRN IV NAUSEA AND/OR VOMITING; Start 03/19/18 at 02:00 Acetaminophen (Tylenol Tab) 650 mg Q4H PRN PO fever; Start 03/19/18 at 02:00 Naloxone HCl (Narcan) 0.2 mg Q2M PRN IV overdose; Start 03/19/18 at 02:00 Allopurinol (Zyloprim) 200 mg DAILY PO Last administered on 03/25/18 08:19; Admin Dose 200 MG; Start 03/19/18 at 09:00 Bupropion HCl (Wellbutrin) 75 mg BID PO Last administered on 03/25/18 08:19; Admin Dose 75 MG; Start 03/19/18 at 09:00 Levothyroxine Sodium (Synthroid) 88 mcg BEFORE BREAKFAST PO Last administered on 03/25/18 06:11; Admin Dose 88 MCG; Start 03/20/18 at 07:00 Paroxetine HCl (Paxil) 30 mg DAILY PO Last administered on 03/25/18 08:19; Admin Dose 30 MG; Start 03/19/18 at 09:00 Trazodone HCl (Desyrel) 50 mg QHS PO Last administered on 03/24/18 22:20; Admin Dose 50 MG; Start 03/19/18 at 21:00 Docusate Sodium (Colace) 100 mg BID PO Last administered on 03/25/18 08:19; Admin Dose 100 MG; Start 03/20/18 at 09:00 Magnesium Hydroxide (Milk Of Mag) 30 ml BID PRN PO CONSTIPATION Last administered on 03/20/18 21:07; Admin Dose 30 ML; Start 03/20/18 at 08:00 Sodium Biphosphate/ Sodium Phosphate (Fleet Enema) 133 ml DAILY PRN [place] CONSTIPATION Last administered on 03/21/18 16:25; Admin Dose 133 ML; Start 03/20/18 at 08:00 Gabapentin (Neurontin) 600 mg QHS PO Last administered on 03/24/18 22:19; Ad min Dose 600 MG; Start 03/20/18 at 21:00 Guaifenesin/ Dextromethorphan (Robitussin Dm Liquid Cup) 10 ml QID PO Last administered on 03/25/18 08:08; Admin Dose 10 ML; Start 03/22/18 at 09:00 Phenol (Cepastat Lozenge) 1 lozenge Q1H PRN MT SORE THROAT Last administered on 03/24/18 08:16; Admin Dose 1 LOZENGE; Start 03/22/18 at 14:00 Gabapentin (Neurontin) 600 mg QAM PO Last administered on 03/25/18 08:19; Admin Dose 600 MG; Start 03/24/18 at 09:00 Gabapentin (Neurontin) 600 mg WITH LUNCH PO Last administered on 03/24/18 13:21; Admin Dose 600 MG; Start 03/23/18 at 11:40 Benazepril HCl (Lotensin) 40 mg DAILY PO Last administered on 03/25/18at 08:20; Admin Dose 40 MG; Start 03/25/18 at 09:00 Amlodipine Besylate (Norvasc) 2.5 mg BID PO Last administered on 03/25/18 08:20; Admin Dose 2.5 MG; Start 03/24/18 at 13:30 Docusate Sodium/ Ferrous Fumarate (Moises-Sequels) 1 tab BID PO Last administered on 03/25/18 08:19; Admin Dose 1 TAB; Start 03/24/18 at 13:30 BETO DOYLE MD Mar 25, 2018 12:13
--- NOTE | 2018-03-25 13:17 | NUR ---
PT NOTE , PER DR VELAZQUEZ RECOMMENDATION WILL HOLD PT TREATMENT THIS PM .PATIENT NOTIFIED . ,
--- NOTE | 2018-03-25 13:26 | CONS ---
Date/Time of Note Date/Time of Note DATE: 03/25/18 TIME: 13:22 Consultation Date/Type/Reason Admit Date/Time Mar 19, 2018 at 03:25 Initial Consult Date 24 HR Interval Summary Free Text/Dictation S: 77 yo F POD#7 s/p revision L4-5 fusion and decompression. Pain controlled w/ PO [place]. Reports continued right sided leg pain. No acute events overnight. Walked 50 feet x 2 w/ PT today. O: Vital Signs Date Temp Pulse Resp B/P (MAP) Pulse Ox O2 O2 Flow FiO2 Time Delivery Rate 03/25/18 98.3 80 18 137/67 96 Room Air 07:15 (90) Gen: AAOx3, NAD Spine: Neurostable CT hip: No fx, mild to mod OA CT Lspine: stable, mild L4-5 graft subsidence w/ stable spondylolisthesis. 4 Views Lumbar Spine: Stable L4-5 graft subsidence. No evidence of hardware fracture. A/P:77 yo F POD#7 s/p revision L4-5 fusion and decompression 1. appreciate med recs 2.OOB w/ PT w/ brace 3. LSO brace 4. possible D/C planning to [facility] once pain under better control Exam/Review of Systems Vital Signs Vitals Vital Signs Date Temp Pulse Resp B/P (MAP) Pulse Ox O2 O2 Flow FiO2 Time Delivery Rate 03/25/18 98.3 80 18 137/67 96 Room Air 07:15 (90) Intake and Output 03/24/18 03/24/18 03/25/18 1515:00 23:00 07:00 OutputOutput Total 300 ml BalanceBalance -300 ml Medications Medications Current Medications Acetaminophen/ Hydrocodone Bitart ([place] (5/325)) 1 tab Q4H PRN PO PAIN LEVEL 1-5 Last administered on 03/21/18at 17:43; Admin Dose 1 TAB; Start 03/19/18 at 02:00 Acetaminophen/ Hydrocodone Bitart ([place] (5/325)) 2 tab Q4H PRN PO PAIN LEVEL 6-10 Last administered on 03/25/18at 10:58; Admin Dose 2 TAB; Start 03/19/18 at 02:00 Prochlorperazine (Compazine) 10 mg Q4H PRN PO NAUSEA AND/OR VOMITING; Start 03/19/18 at 02:00 Ondansetron HCl (Zofran Inj) 4 mg Q6H PRN IV NAUSEA AND/OR VOMITING; Start 03/19/18 at 02:00 Acetaminophen (Tylenol Tab) 650 mg Q4H PRN PO fever; Start 03/19/18 at 02:00 Naloxone HCl (Narcan) 0.2 mg Q2M PRN IV overdose; Start 03/19/18 at 02:00 Allopurinol (Zyloprim) 200 mg DAILY PO Last administered on 03/25/18 08:19; Admin Dose 200 MG; Start 03/19/18 at 09:00 Bupropion HCl (Wellbutrin) 75 mg BID PO Last administered on 03/25/18 08:19; Admin Dose 75 MG; Start 03/19/18 at 09:00 Levothyroxine Sodium (Synthroid) 88 mcg BEFORE BREAKFAST PO Last administered on 03/25/18 06:11; Admin Dose 88 MCG; Start 03/20/18 at 07:00 Paroxetine HCl (Paxil) 30 mg DAILY PO Last administered on 03/25/18 08:19; Admin Dose 30 MG; Start 03/19/18 at 09:00 Trazodone HCl (Desyrel) 50 mg QHS PO Last administered on 03/24/18 22:20; Admin Dose 50 MG; Start 03/19/18 at 21:00 Docusate Sodium (Colace) 100 mg BID PO Last administered on 03/25/18 08:19; Admin Dose 100 MG; Start 03/20/18 at 09:00 Magnesium Hydroxide (Milk Of Mag) 30 ml BID PRN PO CONSTIPATION Last administered on 03/20/18 21:07; Admin Dose 30 ML; Start 03/20/18 at 08:00 Sodium Biphosphate/ Sodium Phosphate (Fleet Enema) 133 ml DAILY PRN IN CONSTIPATION Last administered on 03/21/18 16:25; Admin Dose 133 ML; Start 03/20/18 at 08:00 Gabapentin (Neurontin) 600 mg QHS PO Last administered on 03/24/18 22:19; Admin Dose 600 MG; Start 03/20/18 at 21:00 Guaifenesin/ Dextromethorphan (Robitussin Dm Liquid Cup) 10 ml QID PO Last administered on 03/25/18 12:59; Admin Dose 10 ML; Start 03/22/18 at 09:00 Phenol (Cepastat Lozenge) 1 lozenge Q1H PRN MT SORE THROAT Last administered on 03/24/18 08:16; Admin Dose 1 LOZENGE; Start 03/22/18 at 14:00 Gabapentin (Neurontin) 600 mg QAM PO Last administered on 03/25/18 08:19; Admin Dose 600 MG; Start 03/24/18 at 09:00 Gabapentin (Neurontin) 600 mg WITH LUNCH PO Last administered on 03/25/18 12:58; Admin Dose 600 MG; Start 03/23/18 at 11:40 Benazepril HCl (Lotensin) 40 mg DAILY PO Last administered on 03/25/18 08:20; Admin Dose 40 MG; Start 03/25/18 at 09:00 Amlodipine Besylate (Norvasc) 2.5 mg BID PO Last administered on 03/25/18 08:20; Admin Dose 2.5 MG; Start 03/24/18 at 13:30 Docusate Sodium/ Ferrous Fumarate (Moises-Sequels) 1 tab BID PO Last adm inistered on 03/25/18 08:19; Admin Dose 1 TAB; Start 03/24/18 at 13:30 ZEESHAN VELAZQUEZ MD Mar 25, 2018 13:26
--- NOTE | 2018-03-25 14:26 | NUR ---
SS NOTE: READMISSION SW REFERRED TO PT REGARDING READMISSION. PT IS 77 YR OLD FEMALE READMITTED TO [facility] AFTER 1 DAY FROM HOME FOR ARU. SW MET WITH PT AT BEDSIDE, PT APPEARED TO BE A&OX4 AND COPING APPROPRIATELY WITH ADMISSION. PT LIVES AT HOME ALONE. PT STATED THAT HER SON COY ([phone]) IS HER PRIMARY SURROGATE DECISION MAKER. PT STATED THAT SHE HAS STRONG SUPPORT SYSTEM FROM HER SON AND OTHER FAMILY MEMBERS. PT IS RETIRED AN RECEIVING SOCIAL SECURITY FINANCIAL BENEFIT. PT STATED THAT SHE DRIVES HERSELF TO HER PCP APPOINTMENTS. PT'S REPORTED GOOD COMMUNICATION WITH THE MEDICAL TEAM REGARDING PLAN OF CARE. NO PCC NEEDED AT THIS TIME. PT STATED THAT SHE UNDERSTOOD ALL D/C INSTRUCTIONS. PT HAS AHCD ON FILE IN MEDICAL RECORD LISTING HER SON PRIMARY HEALTH CARE AGENT. PLAN FOR D/C TBD SNF VS HOME. PT TO BE D/C WHEN MEDICALLY CLEARED. SW PROVIDED PERSONNEL MONITOR CONTACT INFO FOR ANY NEEDED RESOURCES. SW REMAINS AVAILABLE FOR F/U NEEDED.
--- NOTE | 2018-03-25 15:04 | NUR ---
OT NOTE Attempted to see pt for skilled OT tx - pt declined due to fatigue and pain.
[2018-03-25 15:39] VITALS: BP 144/66; PULSE 87; RESP 18
--- NOTE | 2018-03-25 16:18 | NUR ---
CM NOTES: CONFIRMED [facility] [phone] ANEESH WILL ACCEPT THE PT TODAY OR TOMORROW: [id number] [place] [address], [id number]. PER SURGEON'S NOTES, PT MAY NOT GO UNTIL THIS SUNDAY DUE TO PAIN LEVEL. THIS CM SPOKE TO THE PT AND SHE AGREED WITH THE DC PLAN TO [facility]. A CM WILL REMAIN AVAILABLE FOR ANY DC PLANNING TOMORROW. DAV CUNNINGHAM CM [phone]
--- NOTE | 2018-03-25 18:44 | NUR ---
EOSS; PT'S HEMODYNAMICS AND RESPIR. STATUS ARE STABLE. NO COMPLICATIONS. NO CHANGES IN CONDITION. PAIN MGMT IS EFFECTIVE. WILL CONT. MONITORING. WILL CONT. W/THE PLAN OF CARE.
[2018-03-25] MEDS: traZODone 50 MG TAB PO SCH (20:34)
[2018-03-25 20:35] VITALS: BP 147/67; PULSE 90; RESP 18
[2018-03-25] MEDS: CEPASTAT LOZENGE MT PRN (23:36)
[2018-03-26 03:14] VITALS: BP 141/63; PULSE 88; RESP 19
[2018-03-26] MEDS: LEVOTHYROXINE 88 MCG TAB PO SCH (06:01)
[2018-03-26] MEDS: MAGNESIUM HYDROXIDE 30ML CUP PO PRN (06:02)
[2018-03-26] MEDS: HYDROCODONE/APAP (5/325) TAB PO PRN ×2 (06:02→09:56)
[2018-03-26 07:35] VITALS: BP 151/72; PULSE 75; RESP 18
--- NOTE | 2018-03-26 08:10 | NUR ---
PT NOTE Therapy day number 7 Subjective Current complaint of pain Pain Scale NUMERIC Pain Intensity 4 (0-10) Patient Stated Goal for Pain Relief 0 (0-10) Pain Level Comment back pain radiating to R knee Transfer Training Start Time 08:10 Supine to Sit Stand by Assist Transfer Sit to Stand Ability Stand by Assist Bed Mobility Sit to Supine Stand by Assist Additional Mobility Comments log roll method using BR Transfer Training End Time 08:25 Total Transfer Training Time 15 min (8-127) Patient uses wheelchair Not Applicable Gait Training Start Time 08:25 Gait Assist Levels Contact Guard Assist Assistive Devices Front Wheel Walker Ambulation Distance 200 feet Additional Gait Comments steady derick, mild unsteady gait, frequent standing breaks due to pain, Gait Training End Time 08:48 Total Gait Training Treatment Time 23 min (8-127) Weight Bearing Assessment Label Bilat Lower Extremity Weight Bearing Status Full Weight Bearing Static Sitting Balance Good Dynamic Sitting Balance Good Standing Static Balance Good Dynamic Standing Balance Fair plus Additional Balance Assessments Comments FWW Safety Judgement Fair Activity Tolerance Fair Additional Equipment Present LSO BRACE Post Treatment Pain Intensity 6 0-10 Variance Documentation SEE BELOW AND PT NOTE Total Treament Time 38 min (8-127) Total Minutes 38 Total Units 3 PT Technical Record Comment PT NOTE S: Pt stated, "I can go for a walk now." Agreeable for PT and cleared oer NAI Somers. O: Received pt in supine, alert. Bed mobility log roll method using BR SBA. Pt donned/doffed LSO brace at EOB Thomas, for OOB activities. Applied gait belt. STS to FWW SBA. Gait training performed w/FWW 200' CGA. Noted unsteady gait, reciprocal pattern, (B) shoulder tension, and NBOS. Pt experienced 3 mild LOB and required Thomas for recovery. Assisted pt back to room BTB. Left pt in comfort position, call light/phone within reach, bed alarmed, and all needs met. NAI Somers informed of pt's status. A: Fair tolerance to tx. Pt showed no signs of distress or SOB during or after tx. Pt required frequent standing rest breaks due to pain. Bed mobility, transfers, and gait distance improved compared to previous tx. P: Continue POC and progress as tolerated.
[2018-03-26] MEDS: DOCUSATE SODIUM 100 MG CAP PO SCH ×2 (08:59→20:57)
[2018-03-26] MEDS: GABAPENTIN 300 MG CAP PO SCH ×3 (08:59→20:57)
[2018-03-26] MEDS: BUPROPION 75 MG TAB PO SCH ×2 (08:59→20:57)
[2018-03-26] MEDS: GUAIFENESIN/DM 5ML CUP PO SCH ×4 (08:59→20:56)
[2018-03-26] MEDS: FERROUS FUMARATE (SR) TAB PO SCH ×2 (08:59→20:56)
[2018-03-26] MEDS: ALLOPURINOL 100 MG TAB PO SCH (09:00)
[2018-03-26] MEDS: AMLODIPINE 2.5 MG TAB PO SCH (09:00)
[2018-03-26] MEDS: PAROXETINE 10 MG TAB PO SCH (09:00)
[2018-03-26] MEDS: BENAZEPRIL 40 MG TAB PO SCH (09:00)
[2018-03-26] MEDS: KETOROLAC 30 MG INJ IM SCH ×2 (10:02→16:27)
--- NOTE | 2018-03-26 11:28 | CONS ---
Date/Time of Note Date/Time of Note DATE: 03/26/18 TIME: 11:25 Assessment/Plan Assessment/Plan Additional Assessment/Plan 1. Post op lumbar back pain with now less right thigh pain. 2. BP is still sl inc, will inc amlodipine. 3. Cough is improving 4. Elev wbc likely from steroids Consultation Date/Type/Reason Admit Date/Time Mar 19, 2018 at 03:25 Initial Consult Date Detailed Summary Respiratory: cough (is better and not productive) Cardiovascular: No chest pain Gastrointestinal: no complaints Genitourinary: no complaints Musculoskeletal: back pain (is less as is right thigh pain) Exam/Review of Systems Vital Signs Vitals Vital Signs Date Temp Pulse Resp B/P (MAP) Pulse Ox O2 O2 Flow FiO2 Time Delivery Rate 03/26/18 98.3 75 18 151/72 100 Room Air 07:35 (98) Intake and Output 03/25/18 03/25/18 03/26/18 1414:59 22:59 06:59 IntakeIntake Total 700 ml 200 ml OutputOutput Total 300 ml 200 ml BalanceBalance 400 ml 0 ml Exam Neck: No jvd Respiratory: clear to auscultation Cardiovascular: regular rate and rhythm Gastrointestinal: soft Extremities: No edema, No tenderness Medications Medications Current Medications Acetaminophen/ Hydrocodone Bitart ([place] (5/325)) 1 tab Q4H PRN PO PAIN LEVEL 1-5 Last administered on 03/21/18at 17:43; Admin Dose 1 TAB; Start 03/19/18 at 02:00 Acetaminophen/ Hydrocodone Bitart ([place] (5/325)) 2 tab Q4H PRN PO PAIN LEVEL 6-10 Last administered on 03/26/18at 09:56; Admin Dose 2 TAB; Start 03/19/18 at 02:00 Prochlorperazine (Compazine) 10 mg Q4H PRN PO NAUSEA AND/OR VOMITING; Start 03/19/18 at 02:00 Ondansetron HCl (Zofran Inj) 4 mg Q6H PRN IV NAUSEA AND/OR VOMITING; Start 03/19/18 at 02:00 Acetaminophen (Tylenol Tab) 650 mg Q4H PRN PO fever; Start 03/19/18 at 02:00 Naloxone HCl (Narcan) 0.2 mg Q2M PRN IV overdose; Start 03/19/18 at 02:00 Allopurinol (Zyloprim) 200 mg DAILY PO Last administered on 03/26/18 09:00; Admin Dose 200 MG; Start 03/19/18 at 09:00 Bupropion HCl (Wellbutrin) 75 mg BID PO Last administered on 03/26/18 08:59; Admin Dose 75 MG; Start 03/19/18 at 09:00 Levothyroxine Sodium (Synthroid) 88 mcg BEFORE BREAKFAST PO Last administered on 03/26/18 06:01; Admin Dose 88 MCG; Start 03/20/18 at 07:00 Paroxetine HCl (Paxil) 30 mg DAILY PO Last administered on 03/26/18 09:00; Admin Dose 30 MG; Start 03/19/18 at 09:00 Trazodone HCl (Desyrel) 50 mg QHS PO Last administered on 03/25/18 20:34; Admin Dose 50 MG; Start 03/19/18 at 21:00 Docusate Sodium (Colace) 100 mg BID PO Last administered on 03/26/18 08:59; Admin Dose 100 MG; Start 03/20/18 at 09:00 Magnesium Hydroxide (Milk Of Mag) 30 ml BID PRN PO CONSTIPATION Last administered on 03/26/18 06:02; Admin Dose 30 ML; Start 03/20/18 at 08:00 Sodium Biphosphate/ Sodium Phosphate (Fleet Enema) 133 ml DAILY PRN [place] CONSTIPATION Last administered on 03/21/18 16:25; Admin Dose 133 ML; Start 03/20/18 at 08:00 Gabapentin (Neurontin) 600 mg QHS PO Last administered on 03/25/18 20:34; Admin Dose 600 MG; Start 03/20/18 at 21:00 Guaifenesin/ Dextromethorphan (Robitussin Dm Liquid Cup) 10 ml QID PO Last administered on 03/26/18 08:59; Admin Dose 10 ML; Start 03/22/18 at 09:00 Phenol (Cepastat Lozenge) 1 lozenge Q1H PRN MT SORE THROAT Last administered on 03/25/18 23:36; Admin Dose 1 LOZENGE; Start 03/22/18 at 14:00 Gabapentin (Neurontin) 600 mg QAM PO Last administered on 03/26/18 08:59; Admin Dose 600 MG; Start 03/24/18 at 09:00 Gabapentin (Neurontin) 600 mg WITH LUNCH PO Last administered on 03/25/18at 12:58; Admin Dose 600 MG; Start 03/23/18 at 11:40 Benazepril HCl (Lotensin) 40 mg DAILY PO Last administered on 03/26/18 09:00; Admin Dose 40 MG; Start 03/25/18 at 09:00 Amlodipine Besylate (Norvasc) 2.5 mg BID PO Last administered on 03/26/18at 09:00; Admin Dose 2.5 MG; Start 03/24/18 at 13:30 Docusate Sodium/ Ferrous Fumarate (Moises-Sequels) 1 tab BID PO Last administered on 03/26/18at 08:59; Admin Dose 1 TAB; Start 03/24/18 at 13:30 Ketorolac Tromethamine (Toradol) 30 mg Q6H IM Last administered on 03/26/18at 10:02; Admin Dose 30 MG; Start 03/26/18 at 10:00; Stop 03/26/18 at 22:01 BETO DOYLE MD Mar 26, 2018 11:28
[2018-03-26] MEDS: ENOXAPARIN 40 MG/0.4 ML SYG SC SCH (12:55)
[2018-03-26 13:56] VITALS: BP 112/54; PULSE 92; RESP 18
--- NOTE | 2018-03-26 18:00 | NUR ---
EOSS: PT'S HEMODYNAMICS AND RESPIR. STATUS ARE STABLE. NO COMPLICATIONS. NO CHANGES IN CONDITION. WILL CONT. MONITORING. WILL CONT. W/ THE PLAN OF CARE.
[2018-03-26 19:35] VITALS: BP 128/58; PULSE 89; RESP 18
[2018-03-26] MEDS: traZODone 50 MG TAB PO SCH (20:57)
[2018-03-26] MEDS: AMLODIPINE 5 MG TAB PO SCH (20:59)
[2018-03-27] MEDS: KETOROLAC 30 MG INJ IM SCH (00:15)
[2018-03-27] MEDS: HYDROCODONE/APAP (5/325) TAB PO PRN ×2 (02:12→06:18)
[2018-03-27 02:17] VITALS: BP 129/69; PULSE 89; RESP 18
[2018-03-27] MEDS: GABAPENTIN 300 MG CAP PO SCH ×3 (05:29→21:12)
[2018-03-27] MEDS: LEVOTHYROXINE 88 MCG TAB PO SCH (06:17)
[2018-03-27 07:57] VITALS: BP_SYST 131; BP_SYST 97; BP_DIAS 56; BP_DIAS 63; PULSE 76; PULSE 91; RESP 18
[2018-03-27] MEDS ORDERED: DEXAMETHASONE 10 MG/ML 1 ML INJ IM ONE (08:00)
--- NOTE | 2018-03-27 08:00 | NUR ---
OT TX S: PT CLEARED BY RN. PT REPORTED 5/10 PAIN IN RIGHT HIP AND AGREEABLE TO TX. O: PT RECEIVED SUPINE IN BED. OTR REVIEWED SPINAL PRECAUTIONS (NO BENDING, LIFTING AND TWISTING). PT PERFORMED SUPINE-> SIT FOLLOWING LOG ROLL TECHNIQUE WITH SBA. SEATED AT EOB PT DONNED TLSO BRACE INDEPENDENTLY.PT PERFORMED FUNCTIONAL MOB AND TOILET TRANSFER WITH CGA REQUIRING VERBAL CUEING FOR PROPER HAND/FOOT PLACEMENT. WHILE SEATED ON TOILET PT DONNED UNDERWEAR USING A LONG HANDED MOBILE PET GROOMER WITH MIN A. PT THEN STOOD AT BATHROOM SINK WITH SBA WHILE PERFORMING H/G TASKS FOLLOWING SPINAL PRECAUTIONS. PT RETURNED TO BED FOLLOWING LOG ROLL TECHNIQUE WITH SBA. RN NOTIFIED. A: PT FOLLOWS SPINAL PRECAUTIONS WITH F+ SAFETY. PT REQUIRES VC FOR PROPER POSITIONING DURING TRANSFERS AND FUNCTIONAL MOB WHILE USING FWW. P: CONT POC.
[2018-03-27] MEDS: OXYCODONE/ACETAMINOPHEN (10/325) TAB PO PRN ×4 (08:15→21:11)
[2018-03-27] MEDS: DOCUSATE SODIUM 100 MG CAP PO SCH ×2 (08:15→21:12)
[2018-03-27] MEDS: FERROUS FUMARATE (SR) TAB PO SCH ×2 (08:15→21:12)
[2018-03-27] MEDS: BENAZEPRIL 40 MG TAB PO SCH (08:16)
[2018-03-27] MEDS: ALLOPURINOL 100 MG TAB PO SCH (08:16)
[2018-03-27] MEDS: AMLODIPINE 5 MG TAB PO SCH ×2 (08:16→21:14)
[2018-03-27] MEDS: GUAIFENESIN/DM 5ML CUP PO SCH ×4 (08:17→21:15)
[2018-03-27] MEDS: PAROXETINE 10 MG TAB PO SCH (08:17)
[2018-03-27] MEDS: BUPROPION 75 MG TAB PO SCH ×3 (08:17→21:13)
[2018-03-27] MEDS: ENOXAPARIN 40 MG/0.4 ML SYG SC SCH (08:21)
--- NOTE | 2018-03-27 09:28 | NUR ---
PT NOTE [facility] Patient: Fauzia Bacon : 1940 Age/Sex: 77/F Unit#: [id number] Room/Bed: 430/A User: Madie Lou PTA Date: 03/27/18 09:28 Type: PT Technical Record Therapy day number 8 Subjective Current complaint of pain Pain Scale NUMERIC Pain Intensity 2 (0-10) Patient Stated Goal for Pain Relief 0 (0-10) Pain Level Comment back and R thigh Transfer Training Start Time 08:50 Supine to Sit Stand by Assist Transfer Sit to Stand Ability Stand by Assist Bed Mobility Sit to Supine Stand by Assist Additional Mobility Comments log roll Transfer Training End Time 09:05 Total Transfer Training Time 15 min (8-127) Patient uses wheelchair Not Applicable Gait Training Start Time 09:05 Gait Assist Levels Contact Guard Assist Assistive Devices Front Wheel Walker Ambulation Distance 80 feet Additional Gait Comments 60'x2 + 80. slow derick, reciprocal pattern, NBOS, LOB x3 & self corrects Gait Training End Time 09:28 Total Gait Training Treatment Time 23 min (8-127) Weight Bearing Assessment Label Bilat Lower Extremity Weight Bearing Status Full Weight Bearing Static Sitting Balance Good Dynamic Sitting Balance Good Standing Static Balance Good Dynamic Standing Balance Fair plus Additional Balance Assessments Comments FWW Safety Judgement Fair Activity Tolerance Good Equipment Present A pump Additional Equipment Present LSO brace Post Treatment Pain Intensity 4 0-10 Variance Documentation See PT note Total Treament Time 38 min (8-127) Total Minutes 38 Total Units 3 PT Technical Record Comment PT NOTE S: NAI Hooker cleared pt for PT. Pt c/o 2/10 back and R thigh pain and was premedicatd. Agreeable to tx O: Received pt in semifowler. See above for assist levels. Independent w/ min VC to don/doff LSO brace. Gait training x 60'x2 + 80' and presented with slow derick, reciprocal pattern, and NBOS. Required VC for safety during gait training. LOB x3 however able to self recover. Returned pt back to room/bed. Positioned pt to comfort in semifowler. Call light/phone within reach. Needs met. A: Good tolerance to tx. Required rest stops during gait training due to dizziness and pain. LOB x3 however able to self recover. Good understanding of spinal precautions P: Continue w/ POC and progress as tolerated. TBA stair training.
--- NOTE | 2018-03-27 10:16 | CONS ---
Date/Time of Note Date/Time of Note DATE: 03/27/18 TIME: 10:13 Assessment/Plan Assessment/Plan Assessment/Plan 1. Post op lumbar back surg without change in right leg radic pain 2. Cough unchanged, will repeat cxr, need to mobilize pt 3. Anemia is stanle 4. Abnl visual sxs, will observe for now with proceeding with in class special education teacher imaging Result Diagram: 03/26/1845003/26/18 045 Consultation Date/Type/Reason Admit Date/Time Mar 19, 2018 at 03:25 Initial Consult Date Detailed Summary Respiratory: cough (dry persists); No shortness of breath Cardiovascular: No chest pain Gastrointestinal: no complaints Genitourinary: no complaints Musculoskeletal: back pain (mild with right thigh and groin pain unchanged) Neurologic: other (vision has changed ?, but no scotoma, diplopia and no focal sxs) Exam/Review of Systems Vital Signs Vitals Vital Signs Date Temp Pulse Resp B/P (MAP) Pulse Ox O2 O2 Flow FiO2 Time Delivery Rate 03/27/18 97.7 76 18 131/63 98 07:57 (85) 03/27/18 Room Air 02:17 Intake and Output 03/26/18 03/26/18 03/27/18 1515:00 23:00 07:00 IntakeIntake Total 500 ml 500 ml 550 ml OutputOutput Total 200 ml BalanceBalance 300 ml 500 ml 550 ml Exam Neck: No jvd Respiratory: clear to auscultation Cardiovascular: regular rate and rhythm Gastrointestinal: soft Extremities: No edema, No tenderness Neurological: other (eoms full); No focal weakness Medications Medications Current Medications Acetaminophen/ Hydrocodone Bitart ([place] (5/325)) 1 tab Q4H PRN PO PAIN LEVEL 1-5 Last administered on 03/21/18at 17:43; Admin Dose 1 TAB; Start 03/19/18 at 02:00 Prochlorperazine (Compazine) 10 mg Q4H PRN PO NAUSEA AND/OR VOMITING; Start 03/19/18 at 02:00 Ondansetron HCl (Zofran Inj) 4 mg Q6H PRN IV NAUSEA AND/OR VOMITING; Start 03/19/18 at 02:00 Acetaminophen (Tylenol Tab) 650 mg Q4H PRN PO fever; Start 03/19/18 at 02:00 Naloxone HCl (Narcan) 0.2 mg Q2M PRN IV overdose; Start 03/19/18 at 02:00 Allopurinol (Zyloprim) 200 mg DAILY PO Last administered on 03/27/18 08:16; Admin Dose 200 MG; Start 03/19/18 at 09:00 Bupropion HCl (Wellbutrin) 75 mg BID PO Last administered on 03/27/18 08:17; Admin Dose 75 MG; Start 03/19/18 at 09:00 Levothyroxine Sodium (Synthroid) 88 mcg BEFORE BREAKFAST PO Last administered on 03/27/18 06:17; Admin Dose 88 MCG; Start 03/20/18 at 07:00 Paroxetine HCl (Paxil) 30 mg DAILY PO Last administered on 03/27/18 08:17; Admin Dose 30 MG; Start 03/19/18 at 09:00 Trazodone HCl (Desyrel) 50 mg QHS PO Last administered on 03/26/18 20:57; A dmin Dose 50 MG; Start 03/19/18 at 21:00 Docusate Sodium (Colace) 100 mg BID PO Last administered on 03/27/18 08:15; Admin Dose 100 MG; Start 03/20/18 at 09:00 Magnesium Hydroxide (Milk Of Mag) 30 ml BID PRN PO CONSTIPATION Last administered on 03/26/18 06:02; Admin Dose 30 ML; Start 03/20/18 at 08:00 Sodium Biphosphate/ Sodium Phosphate (Fleet Enema) 133 ml DAILY PRN [place] CONSTIPATION Last administered on 03/21/18 16:25; Admin Dose 133 ML; Start 03/20/18 at 08:00 Gabapentin (Neurontin) 600 mg QHS PO Last administered on 03/26/18 20:57; Admin Dose 600 MG; Start 03/20/18 at 21:00 Guaifenesin/ Dextromethorphan (Robitussin Dm Liquid Cup) 10 ml QID PO Last administered on 03/27/18 08:17; Admin Dose 10 ML; Start 03/22/18 at 09:00 Phenol (Cepastat Lozenge) 1 lozenge Q1H PRN MT SORE THROAT Last administered on 03/25/18 23:36; Admin Dose 1 LOZENGE; Start 03/22/18 at 14:00 Gabapentin (Neurontin) 600 mg QAM PO Last administered on 03/27/18 05:29; Admin Dose 600 MG; Start 03/24/18 at 09:00 Gabapentin (Neurontin) 600 mg WITH LUNCH PO Last administered on 03/26/18at 1 2:51; Admin Dose 600 MG; Start 03/23/18 at 11:40 Benazepril HCl (Lotensin) 40 mg DAILY PO Last administered on 03/27/18at 08:16; Admin Dose 40 MG; Start 03/25/18 at 09:00 Docusate Sodium/ Ferrous Fumarate (Moises-Sequels) 1 tab BID PO Last administered on 03/27/18at 08:15; Admin Dose 1 TAB; Start 03/24/18 at 13:30 Amlodipine Besylate (Norvasc) 5 mg BID PO Last administered on 03/27/18at 08:16 ; Admin Dose 5 MG; Start 03/26/18 at 21:00 Enoxaparin Sodium (Lovenox) 40 mg DAILY SC Last administered on 03/27/18at 08:21; Admin Dose 40 MG; Start 03/26/18 at 11:30 Oxycodone/ Acetaminophen (Endocet (10/ 325)) 1 tab Q4H PRN PO MODERATE PAIN LEVEL 4-6 Last administered on 03/27/18at 08:15; Admin Dose 1 TAB; Start 03/27/18 at 08:00 BETO DOYLE MD Mar 27, 2018 10:16
[2018-03-27] MEDS: LEVOFLOXACIN 500 MG TAB PO SCH (12:28)
[2018-03-27] MEDS ORDERED: IPRATROPIUM (NEB) 0.5 MG/2.5 ML AMP HHN SCH (13:00)
[2018-03-27] MEDS: ALBUTEROL/IPRATROPIUM (NEB) 3 ML AMP HHN SCH ×3 (13:58→20:25)
--- NOTE | 2018-03-27 14:04 | NUR ---
PT NOTE [facility] Patient: Fauzia Bacon : 1940 Age/Sex: 77/F Unit#: [id number] Room/Bed: 430/A User: Madie Lou PTA Date: 03/27/18 14:04 Type: PT Technical Record Therapy day number 8 Subjective Current complaint of pain Pain Scale NUMERIC Pain Intensity 3 (0-10) Patient Stated Goal for Pain Relief 0 (0-10) Pain Level Comment back and R buttocks Transfer Training Start Time 13:25 Supine to Sit Supervised Transfer Sit to Stand Ability Stand by Assist Bed Mobility Sit to Supine Supervised Additional Mobility Comments log roll Transfer Training End Time 13:40 Total Transfer Training Time 15 min (8-127) Patient uses wheelchair Not Applicable Gait Training Start Time 13:40 Gait Assist Levels Stand by Assist Assistive Devices Front Wheel Walker Ambulation Distance 100 feet Additional Gait Comments slow, reciprocal pattern, NBOS. Gait Training End Time 14:04 Total Gait Training Treatment Time 24 min (8-127) Weight Bearing Assessment Label Bilat Lower Extremity Weight Bearing Status Full Weight Bearing Stair Climbing Ability Minimum Assist Number of Stairs 4 Stairs Additional Stairs Assist Comments asc/desc w/ use of bilateral hand rails, step to pattern Static Sitting Balance Good Dynamic Sitting Balance Good Standing Static Balance Good Dynamic Standing Balance Fair plus Additional Balance Assessments Comments FWW Safety Judgement Fair Activity Tolerance Good Equipment Present A pump Additional Equipment Present LSO brace Post Treatment Pain Intensity 3 0-10 Variance Documentation See note Total Treament Time 39 min (8-127) Total Minutes 39 Total Units 3 PT Technical Record Comment S: NAI Hooker cleared pt for PT. Pt c/o 3/10 back and R buttocks pain and was premedicated. Agreeable to tx O: Receiveded pt in semifowler w/ visitor present in room. See above for assist levels. Indepedently don/doff LSO brace w/ min VC/TC. Gait training x 100' and presented with slow,reciprocal pattern, NBOS. Noted light limp. Performed stair training x 4 steps asc/desc w/ use of bilateral hand rails, step to pattern. Instructed pt on stair sequencing, good return. Rest breaks in between d/t pain. Returned pt back to room via wheelchair. Ambulated from door of room to EOB. Returned back to bed. Positioned pt to comfort in semifowler. Call light/phone within reach. Needs met. Left pt w/ RT and visitor present in room A: Good tolerance to tx. Tolerated stair training. Good understanding of spinal precautions P: Continue w/ POC and progress as tolerated
[2018-03-27 14:38] VITALS: BP 112/67; PULSE 94; RESP 18
--- NOTE | 2018-03-27 19:17 | NUR ---
END OF SHIFT NOTE: Patient's pain managed with Endocet every four hours and gabapentin. Patient still has dry cough with some improvement in cough symptoms with breathing treatments. I reported chest x-ray results to romoff he placed orders for chest x-ray and antibiotic. Patient dressing remains intact. Patient ambulating with steady gait with FWW and stand by assist. Patient tolerating diet with no nausea or vomiting.
[2018-03-27 20:21] VITALS: BP 145/65; PULSE 83; RESP 16
[2018-03-27] MEDS: traZODone 50 MG TAB PO SCH (21:13)
[2018-03-28] MEDS: ALBUTEROL/IPRATROPIUM (NEB) 3 ML AMP HHN SCH ×5 (01:00→17:00)
[2018-03-28 01:16] VITALS: BP 105/51; PULSE 72; RESP 16
[2018-03-28] MEDS: OXYCODONE/ACETAMINOPHEN (10/325) TAB PO PRN ×4 (02:45→14:59)
[2018-03-28] MEDS: LEVOTHYROXINE 88 MCG TAB PO SCH (06:37)
[2018-03-28] MEDS: LEVOFLOXACIN 500 MG TAB PO SCH (06:37)
[2018-03-28 08:16] VITALS: BP 134/60; PULSE 83; RESP 18
[2018-03-28] MEDS: ALLOPURINOL 100 MG TAB PO SCH (09:00)
[2018-03-28] MEDS: GUAIFENESIN/DM 5ML CUP PO SCH ×3 (09:21→17:02)
[2018-03-28] MEDS: BENAZEPRIL 40 MG TAB PO SCH (09:22)
[2018-03-28] MEDS: DOCUSATE SODIUM 100 MG CAP PO SCH (09:23)
[2018-03-28] MEDS: PAROXETINE 10 MG TAB PO SCH (09:23)
[2018-03-28] MEDS: GABAPENTIN 300 MG CAP PO SCH ×2 (09:24→12:14)
[2018-03-28] MEDS: AMLODIPINE 5 MG TAB PO SCH (09:24)
[2018-03-28] MEDS: BUPROPION 75 MG TAB PO SCH (09:25)
[2018-03-28] MEDS: FERROUS FUMARATE (SR) TAB PO SCH (09:25)
--- NOTE | 2018-03-28 09:25 | NUR ---
PT NOTE [facility] Patient: Fauzia Bacon : 1940 Age/Sex: 77/F Unit#: [id number] Room/Bed: 430/A User: Carla Nuñez PTA Date: 03/28/18 09:00 Type: PT Technical Record Therapy day number 9 Subjective Current complaint of pain Pain Scale NUMERIC Pain Intensity 5 (0-10) Patient Stated Goal for Pain Relief 0 (0-10) Pain Level Comment R buttocks down to ant thigh; premedicated Transfer Training Start Time 09:00 Supine to Sit Supervised Transfer Sit to Stand Ability Supervised Bed Mobility Sit to Supine Contact Guard Assist Additional Mobility Comments log roll; CGA with B LEs to supine Transfer Training End Time 09:10 Total Transfer Training Time 10 min (8-127) Patient uses wheelchair Not Applicable Gait Training Start Time 09:11 Gait Assist Levels Contact Guard Assist Assistive Devices Front Wheel Walker Ambulation Distance 40 feet Additional Gait Comments 40', 20'x5; frequent standing breaks due to pain, occasional LOB Gait Training End Time 09:25 Total Gait Training Treatment Time 14 min (8-127) Weight Bearing Assessment Label Bilat Lower Extremity Weight Bearing Status Full Weight Bearing Static Sitting Balance Good Dynamic Sitting Balance Good Standing Static Balance Fair plus Dynamic Standing Balance Fair Additional Balance Assessments Comments with FWW Safety Judgement Fair Activity Tolerance Fair Equipment Present A pump Additional Equipment Present LSO Post Treatment Pain Intensity 8 0-10 Quality Indicators Dizziness Variance Documentation SEE NOTE Total Treament Time 24 min (8-127) Total Minutes 24 Total Units 2 PT Technical Record Comment PT NOTE S: Pt c/o 5/10 L/S pain at rest and 8/10 R buttocks and ant thigh pain post tx. Agreed to skilled PT. Cleared and premedicated by NAI Cordon. O: Received awake in supine. Pt able to verbalize 100% spinal precautions. See tech record for assist levels. Log roll to EOB. Donned LSO with min A. STS with FWW. Gait trianing with FWW, reciprocal gait, uneven step length, antalgic, occasional LOB with SBA/CGA for recovery, frequent standing breaks d/t pain and occasional c/o dizziness. Returned back to bed; R and L log roll for repositioning. Left in supine, call light and all necessities within reach, SCDs on, RN at bedside. A: Pt cody tx fairly. Increased pain with gait training limited activities today. Good demo of spinal precautions during transfers. Required VCs on upright posture. P: Continue with POC.
[2018-03-28] MEDS: ENOXAPARIN 40 MG/0.4 ML SYG SC SCH (09:29)
--- NOTE | 2018-03-28 09:56 | CONS ---
Date/Time of Note Date/Time of Note DATE: 03/28/18 TIME: 09:53 Assessment/Plan Assessment/Plan Assessment/Plan 1. Post op lumbar back surg with less back pain and sl improvement in right leg radic pain 2. New infiltrate on cxr, levaquin started yesterday and bronchodilators 3. Anemia is stable 4. Can transfer to [facility] if ok with ortho Result Diagram: 03/28/18 0431 03/28/18 0431 Results 24hrs Laboratory Tests Test 03/28/18 04:31 White Blood Count 10.5 # Red Blood Count 2.91 L Hemoglobin 9.1 L Hematocrit 28.7 L Mean Corpuscular Volume 98.6 Mean Corpuscular Hemoglobin 31.3 Mean Corpuscular Hemoglobin Concent 31.7 L Red Cell Distribution Width 14.8 H Platelet Count 429 H Mean Platelet Volume 9.6 Immature Granulocytes % 1.200 H Neutrophils % 60.5 Lymphocytes % 21.7 Monocytes % 9.5 Eosinophils % 6.2 Basophils % 0.9 Nucleated Red Blood Cells % 0.0 Immature Granulocytes # 0.130 H Neutrophils # 6.4 Lymphocytes # 2.3 Monocytes # 1.0 H Eosinophils # 0.7 H Basophils # 0.1 Nucleated Red Blood Cells # 0.0 Sodium Level 138 Potassium Level 4.0 Chloride Level 104 Carbon Dioxide Level 26 Anion Gap 8 Blood Urea Nitrogen 25 H Creatinine 1.17 H Est Glomerular Filtrat Rate mL/min Glucose Level 99 Calcium Level 8.0 L Phosphorus Level 5.7 #H Magnesium Level 2.0 Consultation Date/Type/Reason Admit Date/Time Mar 19, 2018 at 03:25 Initial Consult Date Detailed Summary Respiratory: cough (is less); No shortness of breath Cardiovascular: No chest pain Gastrointestinal: no complaints Genitourinary: no complaints Musculoskeletal: back pain (is less and right leg radic pain is less) Exam/Review of Systems Vital Signs Vitals Vital Signs Date Temp Pulse Resp B/P (MAP) Pulse Ox O2 O2 Flow FiO2 Time Delivery Rate 03/28/18 98.7 83 18 134/60 92 Room Air 08:16 (84) 03/27/18 21 20:25 Intake and Output 03/27/18 03/27/18 03/28/18 1515:00 23:00 07:00 IntakeIntake Total 360 ml BalanceBalance 360 ml Exam Eyes: other (she c/o abnl vision left eye after second surg, ?? was present yesterday and no she has no difficulty with "fuzzy" vision) Neck: No jvd Respiratory: clear to auscultation Gastrointestinal: soft Extremities: No edema (and no calf tend) Neurological: focal weakness (eoms full, [place]) Medications Medications Current Medications Acetaminophen/ Hydrocodone Bitart ([place] (5/325)) 1 tab Q4H PRN PO PAIN LEVEL 1-5 Last administered on 03/21/18at 17:43; Admin Dose 1 TAB; Start 03/19/18 at 02:00 Prochlorperazine (Compazine) 10 mg Q4H PRN PO NAUSEA AND/OR VOMITING; Start 03/19/18 at 02:00 Ondansetron HCl (Zofran Inj) 4 mg Q6H PRN IV NAUSEA AND/OR VOMITING; Start 03/19/18 at 02:00 Acetaminophen (Tylenol Tab) 650 mg Q4H PRN PO fever; Start 03/19/18 at 02:00 Naloxone HCl (Narcan) 0.2 mg Q2M PRN IV overdose; Start 03/19/18 at 02:00 Allopurinol (Zyloprim) 200 mg DAILY PO Last administered on 03/27/18 08:16; Admin Dose 200 MG; Start 03/19/18 at 09:00 Bupropion HCl (Wellbutrin) 75 mg BID PO Last administered on 03/28/18 09:25; Admin Dose 75 MG; Start 03/19/18 at 09:00 Levothyroxine Sodium (Synthroid) 88 mcg BEFORE BREAKFAST PO Last administered on 03/28/18 06:37; Admin Dose 88 MCG; Start 03/20/18 at 07:00 Paroxetine HCl (Paxil) 30 mg DAILY PO Last administered on 03/28/18 09:23; Admin Dose 30 MG; Start 03/19/18 at 09:00 Trazodone HCl (Desyrel) 50 mg QHS PO Last administered on 03/27/18 21:13; Admin Dose 50 MG; Start 03/19/18 at 21:00 Docusate Sodium (Colace) 100 mg BID PO Last administered on 03/28/18 09:23; Admin Dose 100 MG; Start 03/20/18 at 09:00 Magnesium Hydroxide (Milk Of Mag) 30 ml BID PRN PO CONSTIPATION Last administered on 03/26/18 06:02; Admin Dose 30 ML; Start 03/20/18 at 08:00 Sodium Biphosphate/ Sodium Phosphate (Fleet Enema) 133 ml DAILY PRN [place] CONSTIPATION Last administered on 03/21/18 16:25; Admin Dose 133 ML; Start 03/20/18 at 08:00 Gabapentin (Neurontin) 600 mg QHS PO Last administered on 03/27/18 21:12; Admin Dose 600 MG; Start 03/20/18 at 21:00 Guaifenesin/ Dextromethorphan (Robitussin Dm Liquid Cup) 10 ml QID PO Last administered on 03/28/18 09:21; Admin Dose 10 ML; Start 03/22/18 at 09:00 Phenol (Cepastat Lozenge) 1 lozenge Q1H PRN MT SORE THROAT Last administered on 03/25/18 23:36; Admin Dose 1 LOZENGE; Start 03/22/18 at 14:00 Gabapentin (Neurontin) 600 mg QAM PO Last administered on 03/28/18 09:24; Admin Dose 600 MG; Start 03/24/18 at 09:00 Gabapentin (Neurontin) 600 mg WITH LUNCH PO Last administered on 03/27/18 12:27; Admin Dose 600 MG; Start 03/23/18 at 11:40 Benazepril HCl (Lotensin) 40 mg DAILY PO Last administered on 03/28/18 09:22; Admin Dose 40 MG; Start 03/25/18 at 09:00 Docusate Sodium/ Ferrous Fumarate (Moises-Sequels) 1 tab BID PO Last administered on 03/28/18 09:25; Admin Dose 1 TAB; Start 03/24/18 at 13:30 Amlodipine Besylate (Norvasc) 5 mg BID PO Last administered on 03/28/18 09 :24; Admin Dose 5 MG; Start 03/26/18 at 21:00 Enoxaparin Sodium (Lovenox) 40 mg DAILY SC Last administered on 03/28/18 09:29; Admin Dose 40 MG; Start 03/26/18 at 11:30 Oxycodone/ Acetaminophen (Endocet (10/ 325)) 1 tab Q4H PRN PO MODERATE PAIN LEVEL 4-6 Last administered on 03/28/18 06:55; Admin Dose 1 TAB; Start 03/27/18 at 08:00 Levofloxacin (Levaquin) 500 mg DAILY@06 PO Last administered on 03/28/18at 06:37; Admin Dose 500 MG; Start 03/27/18 at 12:30 Albuterol/ Ipratropium (Duoneb) 2.5 ml Q4H RESP THERAPY HHN Last administered on 03/28/18 09:45; Admin Dose 2.5 ML; Start 03/27/18 at 13:00 BETO DOYLE MD Mar 28, 2018 09:56
--- NOTE | 2018-03-28 10:58 | NUR ---
CM NOTES: RECEIVED A PHONE CALL LATE AFTERNOON FROM DEANNA MCLEOD AND NOW [facility] CANNOT ACCEPT THE PT DUE TO INSURANCE WILL BE CHANGED TO [employer]VANTAGE STARTING Apr,. THIS CM INFORMED PT'S SON ANNA AND THE PT. ALSO INFORMED THE PT THAT [facility] [phone] IS LOOKING AT THE REFERRAL ALSO AND DR DOYLE CAN FOLLOW THE PT ALSO. AWAITING FOR FINAL DECISION. THIS CM WILL REMAIN AVAILABLE. DAV TUCKER LEAD CM [phone]
--- NOTE | 2018-03-28 12:32 | CONS ---
Date/Time of Note Date/Time of Note DATE: 03/28/18 TIME: 12:30 Assessment/Plan Assessment/Plan Result Diagram: 03/28/18 0431 03/28/18 0431 Results 24hrs Laboratory Tests Test 03/28/18 04:31 White Blood Count 10.5 # Red Blood Count 2.91 L Hemoglobin 9.1 L Hematocrit 28.7 L Mean Corpuscular Volume 98.6 Mean Corpuscular Hemoglobin 31.3 Mean Corpuscular Hemoglobin Concent 31.7 L Red Cell Distribution Width 14.8 H Platelet Count 429 H Mean Platelet Volume 9.6 Immature Granulocytes % 1.200 H Neutrophils % 60.5 Lymphocytes % 21.7 Monocytes % 9.5 Eosinophils % 6.2 Basophils % 0.9 Nucleated Red Blood Cells % 0.0 Immature Granulocytes # 0.130 H Neutrophils # 6.4 Lymphocytes # 2.3 Monocytes # 1.0 H Eosinophils # 0.7 H Basophils # 0.1 Nucleated Red Blood Cells # 0.0 Sodium Level 138 Potassium Level 4.0 Chloride Level 104 Carbon Dioxide Level 26 Anion Gap 8 Blood Urea Nitrogen 25 H Creatinine 1.17 H Est Glomerular Filtrat Rate mL/min Glucose Level 99 Calcium Level 8.0 L Phosphorus Level 5.7 #H Magnesium Level 2.0 Consultation Date/Type/Reason Admit Date/Time Mar 19, 2018 at 03:25 Initial Consult Date 24 HR Interval Summary Free Text/Dictation S: 77 yo F POD#8 s/p revision L4-5 fusion and decompression. Pain controlled w/ PO Darvocet. Reports continued right sided leg pain w/ slight improvement. No acute events overnight. OOB w/ PT. Infiltrate on Chest XR w/ cough. She has been started on Levaquin. O: Vital Signs Date Temp Pulse Resp B/P (MAP) Pulse Ox O2 O2 Flow FiO2 Time Delivery Rate 03/28/18 92 20 96 21 09:57 03/28/18 98.7 83 18 134/60 92 Room Air 08:16 (84) Gen: AAOx3, NAD Spine: Neurostable CT hip: No fx, mild to mod OA CT Lspine: stable, mild L4-5 graft subsidence w/ stable spondylolisthesis. 4 Views Lumbar Spine: Stable L4-5 graft subsidence. No evidence of hardware fracture. A/P:77 yo F POD#7 s/p revision L4-5 fusion and decompression 1. appreciate med recs 2.OOB w/ PT w/ brace 3. LSO brace 4. breathing treatment and Levaquin for cough 5. Possible transfer to [facility] once accepted Exam/Review of Systems Vital Signs Vitals Vital Signs Date Temp Pulse Resp B/P (MAP) Pulse Ox O2 O2 Flow FiO2 Time Delivery Rate 03/28/18 92 20 96 21 09:57 03/28/18 98.7 134/60 Room Air 08:16 (84) Intake and Output 03/27/18 03/27/18 03/28/18 1515:00 23:00 07:00 IntakeIntake Total 360 ml BalanceBalance 360 ml Medications Medications Current Medications Acetaminophen/ Hydrocodone Bitart ([place] (5/325)) 1 tab Q4H PRN PO PAIN LEVEL 1-5 Last administered on 03/21/18at 17:43; Admin Dose 1 TAB; Start 03/19/18 at 02:00 Prochlorperazine (Compazine) 10 mg Q4H PRN PO NAUSEA AND/OR VOMITING; Start 03/19/18 at 02:00 Ondansetron HCl (Zofran Inj) 4 mg Q6H PRN IV NAUSEA AND/OR VOMITING; Start 03/19/18 at 02:00 Acetaminophen (Tylenol Tab) 650 mg Q4H PRN PO fever; Start 03/19/18 at 02:00 Naloxone HCl (Narcan) 0.2 mg Q2M PRN IV overdose; Start 03/19/18 at 02:00 Allopurinol (Zyloprim) 200 mg DAILY PO Last administered on 03/27/18at 08:16; Admin Dose 200 MG; Start 03/19/18 at 09:00 Bupropion HCl (Wellbutrin) 75 mg BID PO Last administered on 03/28/18 09:25; Admin Dose 75 MG; Start 03/19/18 at 09:00 Levothyroxine Sodium (Synthroid) 88 mcg BEFORE BREAKFAST PO Last administered on 03/28/18at 06:37; Admin Dose 88 MCG; Start 03/20/18 at 07:00 Paroxetine HCl (Paxil) 30 mg DAILY PO Last administered on 03/28/18 09:23; Admin Dose 30 MG; Start 03/19/18 at 09:00 Trazodone HCl (Desyrel) 50 mg QHS PO Last administered on 03/27/18 21:13; Admin Dose 50 MG; Start 03/19/18 at 21:00 Docusate Sodium (Colace) 100 mg BID PO Last administered on 03/28/18 09:23; Admin Dose 100 MG; Start 03/20/18 at 09:00 Magnesium Hydroxide (Milk Of Mag) 30 ml BID PRN PO CONSTIPATION Last administered on 03/26/18 06:02; Admin Dose 30 ML; Start 03/20/18 at 08:00 Sodium Biphosphate/ Sodium Phosphate (Fleet Enema) 133 ml DAILY PRN [place] CONSTIPATION Last administered on 03/21/18 16:25; Admin Dose 133 ML; Start 03/20/18 at 08:00 Gabapentin (Neurontin) 600 mg QHS PO Last administered on 03/27/18 21:12; Admin Dose 600 MG; Start 03/20/18 at 21:00 Guaifenesin/ Dextromethorphan (Robitussin Dm Liquid Cup) 10 ml QID PO Last administered on 03/28/18 12:14; Admin Dose 10 ML; Start 03/22/18 at 09:00 Phenol (Cepastat Lozenge) 1 lozenge Q1H PRN [place] SORE THROAT Last administered on 03/25/18 23:36; Admin Dose 1 LOZENGE; Start 03/22/18 at 14:00 Gabapentin (Neurontin) 600 mg QAM PO Last administered on 03/28/18 09:24; Admin Dose 600 MG; Start 03/24/18 at 09:00 Gabapentin (Neurontin) 600 mg WITH LUNCH PO Last administered on 03/28/18 12:14; Admin Dose 600 MG; Start 03/23/18 at 11:40 Benazepril HCl (Lotensin) 40 mg DAILY PO Last administered on 03/28/18 09:22; Admin Dose 40 MG; Start 03/25/18 at 09:00 Docusate Sodium/ Ferrous Fumarate (Moises-Sequels) 1 tab BID PO Last administered on 03/28/18 09:25; Admin Dose 1 TAB; Start 03/24/18 at 13:30 Amlodipine Besylate (Norvasc) 5 mg BID PO Last administered on 03/28/18 09:24; Admin Dose 5 MG; Start 03/26/18 at 21:00 Enoxaparin Sodium (Lovenox) 40 mg DAILY SC Last administered on 03/28/18at 09:29; Admin Dose 40 MG; Start 03/26/18 at 11:30 Oxycodone/ Acetaminophen (Endocet (10/ 325)) 1 tab Q4H PRN PO MODERATE PAIN LEVEL 4-6 Last administered on 03/28/18at 11:12; Admin Dose 1 TAB; Start 03/27/18 at 08:00 Levofloxacin (Levaquin) 500 mg DAILY@06 PO Last administered on 03/28/18at 06:37; Admin Dose 500 MG; Start 03/27/18 at 12:30 Albuterol/ Ipratropium (Duoneb) 2.5 ml Q4H RESP THERAPY HHN Last administered on 03/28/18at 09:45; Admin Dose 2.5 ML; Start 03/27/18 at 13:00 ZEESHAN VELAZQUEZ MD Mar 28, 2018 12:32
--- NOTE | 2018-03-28 13:50 | NUR ---
PT NOTE [facility] Patient: Fauzia Bacon : 1940 Age/Sex: 77/F Unit#: [id number] Room/Bed: 430/A User: Carla Nuñez PTA Date: 03/28/18 13:25 Type: PT Technical Record Therapy day number 9 Subjective Current complaint of pain Pain Scale NUMERIC Pain Intensity 5 (0-10) Patient Stated Goal for Pain Relief 0 (0-10) Pain Level Comment R buttocks and ant thigh and L/S; premedicated Transfer Training Start Time 13:25 Supine to Sit Supervised Transfer Sit to Stand Ability Stand by Assist Bed Mobility Sit to Supine Minimum Assist Additional Mobility Comments log roll Transfer Training End Time 13:35 Total Transfer Training Time 10 min (8-127) Patient uses wheelchair Not Applicable Gait Training Start Time 13:36 Gait Assist Levels Stand by Assist Assistive Devices Front Wheel Walker Ambulation Distance 50 feet Additional Gait Comments 50'x4 with standing break d/t pain, reciprocal gait, improved balance Gait Training End Time 13:50 Total Gait Training Treatment Time 14 min (8-127) Weight Bearing Assessment Label Bilat Lower Extremity Weight Bearing Status Full Weight Bearing Static Sitting Balance Good Dynamic Sitting Balance Good Standing Static Balance Fair plus Dynamic Standing Balance Fair Additional Balance Assessments Comments with FWW Safety Judgement Fair Activity Tolerance Fair Equipment Present A pump Additional Equipment Present LSO Post Treatment Pain Intensity 7 0-10 Variance Documentation see PT note Total Treament Time 24 min (8-127) Total Minutes 24 Total Units 2 PT Technical Record Comment PT NOTE S: "I feel a little better than this morning." Agreed to skilled PT. Cleared and premedicated by NAI Cordon. O: Received awake in supine. See tech record for assist levels. Transfered to EOB. Donned LSO with min A. STS with FWW. Gait training with FWW, reciprocal gait, improved balance but still experiences occasional slight LOB, able to self correct. Returned to room and transfered back to bed with min A of R LE. Positioned in supine, SCDs on, call light and all necessities within reach. Informed RN. A; Pt cody tx well. Continues to demo slight LOB but is able to self correct. P: Continue with POC.
[2018-03-28 14:17] VITALS: BP 130/62; PULSE 86; RESP 18
[2018-03-28 16:13] VITALS: BP 124/57; PULSE 91; RESP 18
--- NOTE | 2018-03-28 17:25 | NUR ---
RN NOTE: PATIENT STABLE FOR TRANSFER TO [facility], V/S -WNL, NO C/O PAIN AT THIS TIME, REPORT GIVEN TO NAI BARBER , ALSO REPORT GIVEN TO EMT, ALL BELONGINGS TRANSFERRED WITH PATIENT.
== END 2018-03-28 17:22 | DRG 497 ==
LOC: MS1 03:25
PROVIDERS: ADMIT Internal Medicine; ATTEND Orthopaedic Surgery
PROC: 0QW004Z Revision of Internal Fixation Device in Lumbar Vertebra, Open Approach (ICD-10-PCS; principal; 2018-03-20)
DX: T84.296A Other mechanical complication of internal fixation device of vertebrae, initial encounter (principal); M43.16 Spondylolisthesis, lumbar region; M54.16 Radiculopathy, lumbar region; M48.061 Spinal stenosis, lumbar region without neurogenic claudication; M10.9 Gout, unspecified; I10 Essential (primary) hypertension; E03.9 Hypothyroidism, unspecified; Z96.611 Presence of right artificial shoulder joint; K21.9 Gastro-esophageal reflux disease without esophagitis; E83.42 Hypomagnesemia; F39 Unspecified mood [affective] disorder; D64.9 Anemia, unspecified; Y83.8 Other surgical procedures as the cause of abnormal reaction of the patient, or of later complication, without mention of misadventure at the time of the procedure
CPT/HCPCS: 71045; 72110; 72131; 73700; 80048; 81001; 82728; 83540; 83735; 84100; 85014; 85018; 85025; 87086; 88300; 94640; 94664; 97110; 97116; 97163; 97166; 97530; 97535; J0690; J1100; J1170; J1650; J1885; J2916; J3475; J7030